=== PATIENT | female | born 1950 | race Caucasian/White ===

== ENCOUNTER 2017-02-15 10:26 | Emergency (ER) | payer MEDICARE ==
[2017-02-15 10:47] VITALS: BP 164/74
--- NOTE | 2017-02-15 11:28 | UC ---
Shoulder Pain HPI - HPI Summary HPI Summary: 1 MONTH OF RIGHT SHOULDER PAIN RADIATING ESSIE ARM. HAS OCCASIONAL NUMBNESS/ TINGLING IN RIGHT HAND FINGERS. HAS FULL RANGE OF MOTION. OCCASIONALLY STATES SHOULDER WILL POP AND CLICK. NO TRAUMA. - History of Current Complaint Chief Complaint: UCUpperExtremity Stated Complaint: SHOULDER PAIN Time Seen by Provider: 02/15/17 11:25 Hx Obtained From: Patient Onset/Duration: Gradual Onset, Lasting Weeks, Still Present Timing: Constant Severity Initially: Moderate Severity Currently: Moderate Pain Intensity: 6 Pain Scale Used: 0-10 Numeric Character: Sharp Aggravating Factor(s): Movement Alleviating Factor(s): Rest Associated Signs And Symptoms: Positive: Numbness/Tingling Related History: Dominant Hand Right - Allergies/Home Medications Allergies/Adverse Reactions: Allergies Allergy/AdvReac Type Severity Reaction Status Date / Time Codeine Allergy Severe Rash Verified 02/03/15 13:09 Erythromycin Allergy Severe Rash Verified 02/03/15 13:09 Latex Allergy Severe Rash Verified 02/03/15 13:09 NSAIDs Allergy Severe Vomiting Verified 02/03/15 13:09 Sertraline [From Zoloft] Allergy Severe Hives Verified 02/03/15 13:09 Bupropion [From Wellbutrin] Allergy Intermediate Rash Verified 02/03/15 13:09 Pregabalin [From Lyrica] Allergy Rash Verified 02/15/17 10:37 PMH/Surg Hx/FS Hx/Imm Hx Endocrine History Of: Denies: Diabetes, Thyroid Disease Cardiovascular History Of: Reports: Hypertension Denies: Cardiac Disorders, Congestive Heart Failure Respiratory History Of: Reports: Asthma Denies: COPD GI/ History Of: Denies: Ulcer - Surgical History Surgical History: Yes Surgery Procedure, Year, and Place: Left knee meniscectomy 1981, cholecystectomy 1980,. bilat cataracts, uterus suspension 1977, joints replaced on thumbs. vaginal warts? precancerous 2014 - Family History Known Family History: Positive: Hypertension - Social History Alcohol Use: Weekly Substance Use Type: Marijuana Substance Use Comment - Amount & Last Used: once in a while Smoking Status (MU): Current Some Day Smoker Review of Systems Constitutional: Negative Skin: Negative Respiratory: Negative Cardiovascular: Negative Gastrointestinal: Negative Musculoskeletal: Arthralgia, Myalgia Neurological: Paresthesia All Other Systems Reviewed And Are Negative: Yes Physical Exam Triage Information Reviewed: Yes Appearance: Well-Appearing, No Pain Distress, Well-Nourished Vital Signs: Initial Vital Signs Temp 100.2 F 02/15/17 10:38 Pulse 76 02/15/17 10:38 Resp 18 02/15/17 10:38 BP 164/74 02/15/17 10:38 Pulse Ox 96 02/15/17 10:38 Vital Signs Reviewed: Yes Eyes: Positive: Conjunctiva Clear ENT: Positive: Hearing grossly normal Neck: Positive: Supple, Nontender, No Lymphadenopathy Respiratory Exam: Normal Cardiovascular Exam: Normal Abdomen Description: Positive: Soft Musculoskeletal: Positive: ROM Intact, No Edema, Other: - TTP RIGHT TRAPEZIOUS MUSCLE. TTP INFERIOR TO CLAVICLE. NEG TINELS, NEG PHALEN Neurological: Positive: Alert Psychological: Positive: Age Appropriate Behavior Diagnostics - Radiology RIGHT SHOULDER XRAY Xray Interpretation: Positive (See Comments) - MILD OSTEOARTHRITIC CHANGE. Radiology Interpretation Completed By: Radiologist Shoulder Course/Dx - Course Course Of Treatment: XRAY SHOWS MILD OSTEOARTHRITIS. PAIN MAY ALSO BE REFERRED FROM [facility]. WILL GIVE CONTACT INFO FOR SPINE CENTER IN [place]. ALSO SUSPECT THORACIC OUTLET SYNDROME. PT DECLINES PHYSICAL THERAPY REFERRAL. WILL PROVIDE ORTHO CONTACT INFO. PT STATES SHE IS UNLIKELY TO CALL. BP IS ELEVATED. PT STATES SHE USED TO TAKE MEDS FOR BP BUT DOESN'T NOW. ADVISED PCP FOLLOW-UP IN 2 WEEKS FOR RE-EVAL. - Differential Dx/Diagnosis Provider Diagnoses: 1. RIGHT SHOULDER OSTEOARTHRITIS. 2. THORACIC OUTLET SYNDROME Discharge - Discharge Plan Condition: Stable Disposition: HOME Patient Education Materials: Osteoarthritis (ED), Thoracic Outlet Syndrome (ED) Referrals: Silke Harding MD [Medical Doctor] - (IF YOU WANT TO DISCUSS TREATMENT FOR YOUR SHOULDER PAIN) Javier Black MD [Primary Care Provider] - 2 Weeks (TO DISCUSS BP) Additional Instructions: MILD OSTEOARTHRITIS ON XRAY TODAY. [facility] [address] [place], [place] [id number]
--- NOTE | 2017-02-15 12:08 | RAD ---
INDICATION: Right shoulder injury. TECHNIQUE: 3 views of the right shoulder were obtained. FINDINGS: The bones are in normal alignment. No fracture is seen. There is mild osteoarthritic change in the glenohumeral joint. There is mild subacromial narrowing secondary to a small spur arising from the acromion process. IMPRESSION: MILD OSTEOARTHRITIC CHANGE.
== END 2017-02-15 12:34 | disposition home or self-care (01) ==
LOC: UCEAST 10:26
DX: M19.011 Primary osteoarthritis, right shoulder (principal); G54.0 Brachial plexus disorders; J45.909 Unspecified asthma, uncomplicated; I10 Essential (primary) hypertension; F17.210 Nicotine dependence, cigarettes, uncomplicated; Z88.5 Allergy status to narcotic agent; Z88.1 Allergy status to other antibiotic agents; Z88.6 Allergy status to analgesic agent; Z88.8 Allergy status to other drugs, medicaments and biological substances; Z91.040 Latex allergy status
CPT/HCPCS: 99211; G0463

== ENCOUNTER 2017-07-14 10:40 | Emergency (ER) | payer MEDICARE ==
[2017-07-14 11:14] VITALS: BP 142/73
--- NOTE | 2017-07-14 12:35 | UC ---
Lower Extremity/Ankle HPI - HPI Summary HPI Summary: This is a 66 yo female with HTN and asthma who presents with c/o L leg pain. It started ~1 week ago and has become progressively worse. She states the pain is in the anterior lower leg. She has a h/o plantar fasciitis for which she occasionally uses a boot for relief which also makes her leg feel somewhat better. She reports some similar pain on the other side, but not as severe. Denies no recent trauma or acute injury. No recent new activity <Perry Antonio - Last Filed: 07/14/17 12:29> <Arabella Trejo - Last Filed: 07/14/17 20:43> - History of Current Complaint Chief Complaint: UCLowerExtremity Stated Complaint: LOWER LEG PAIN - Allergies/Home Medications Allergies/Adverse Reactions: Allergies Allergy/AdvReac Type Severity Reaction Status Date / Time Codeine Allergy Severe Rash Verified 07/14/17 11:09 Erythromycin Allergy Severe Rash Verified 07/14/17 11:09 Latex Allergy Severe Rash Verified 07/14/17 11:09 NSAIDs Allergy Severe Vomiting Verified 07/14/17 11:09 Sertraline [From Zoloft] Allergy Severe Hives Verified 07/14/17 11:09 Bupropion [From Wellbutrin] Allergy Intermediate Rash Verified 07/14/17 11:09 Pregabalin [From Lyrica] Allergy Rash Verified 07/14/17 11:09 PMH/Surg Hx/FS Hx/Imm Hx Cardiovascular History: Hypertension Respiratory History: Asthma - Surgical History Surgical History: Yes Surgery Procedure, Year, and Place: Left knee meniscectomy 1981, cholecystectomy 1980,. bilat cataracts, uterus suspension 1977, joints replaced on thumbs. vaginal warts precancerous 3 2014 - Family History Known Family History: Positive: Hypertension - Social History Alcohol Use: Weekly Substance Use Type: Marijuana Substance Use Comment - Amount & Last Used: once in a while Smoking Status (MU): Current Some Day Smoker <Perry Antonio - Last Filed: 07/14/17 12:29> Review of Systems Constitutional: Negative Skin: Negative Eyes: Negative ENT: Negative Respiratory: Negative Cardiovascular: Negative Gastrointestinal: Negative Genitourinary: Negative Motor: Negative Musculoskeletal: Arthralgia, Myalgia Neurological: Negative Psychological: Negative All Other Systems Reviewed And Are Negative: Yes <Perry Antonio - Last Filed: 07/14/17 12:29> Physical Exam Triage Information Reviewed: Yes Appearance: Well-Appearing Vital Signs: Initial Vital Signs Temp 98.4 F 07/14/17 11:10 Pulse 72 07/14/17 11:10 Resp 18 07/14/17 11:10 BP 142/73 07/14/17 11:10 Pulse Ox 100 07/14/17 11:10 Vital Signs Reviewed: Yes ENT Exam: Normal ENT: Positive: Hearing grossly normal Neck: Positive: Supple, Nontender Respiratory: Positive: Chest non-tender, Lungs clear. Negative: Crackles, Rhonchi, Wheezing Cardiovascular: Positive: RRR, No Murmur Abdomen Description: Positive: Soft Musculoskeletal: Positive: Other: - TTP along anterior tibial region, no focal tenderness, no ecchymosis or edema. Pain exacerbated with resisted plantar flexion. Neurological: Positive: Alert Psychological: Positive: Normal Response To Family Skin Exam: Normal Skin: Negative: rashes <Perry Antonio - Last Filed: 07/14/17 12:29> Vital Signs: Initial Vital Signs Temp 98.4 F 07/14/17 11:10 Pulse 72 07/14/17 11:10 Resp 18 07/14/17 11:10 BP 142/73 07/14/17 11:10 Pulse Ox 100 07/14/17 11:10 <Arabella Trejo - Last Filed: 07/14/17 20:43> Lower Extremity Course/Dx - Course Course Of Treatment: This is a 66 yo female with c/o L lower leg pain which has an insidious onset. TTP along anterior tibial musculature and exacerbated with dorsiflexion. Without acute injury or focal findings, no indication for XR at this time. Pain is likely due to lindsey splints. Demonstrated stretches, recommended icing and occasional immobilization as needed for pain relief. - Differential Dx/Diagnosis Differential Diagnosis/HQI/PQRI: Contusion, Fracture (Closed), Sprain, Strain, Tendonitis Provider Diagnoses: 1. Lindsey splints <Perry Antonio - Last Filed: 07/14/17 12:29> Discharge <Perry Antonio - Last Filed: 07/14/17 12:29> <Arabella Trejo - Last Filed: 07/14/17 20:43> - Discharge Plan Condition: Stable Disposition: HOME Patient Education Materials: Lindsey Splints (ED) Referrals: Javier Black MD [Primary Care Provider] - If Needed Additional Instructions: Activity: As tolerated Instructions: 1. Complete calf stretches as demonstrated 2-3 times daily 2. Apply ice frequently 3. Use topical anti-inflammatory cream for additional pain relief Attestation Statement User Type: Provider - I was available for consult. This patient was seen by the LEONIDES. The patient was not presented to, seen by, or examined by me. -Manpreet <Arabella Trejo - Last Filed: 07/14/17 20:43>
== END 2017-07-14 12:32 | disposition home or self-care (01) ==
LOC: UCEAST 10:40
DX: S86.892A Other injury of other muscle(s) and tendon(s) at lower leg level, left leg, initial encounter (principal); X58.XXXA Exposure to other specified factors, initial encounter; Y93.9 Activity, unspecified; Y99.9 Unspecified external cause status; I10 Essential (primary) hypertension; J45.909 Unspecified asthma, uncomplicated
CPT/HCPCS: 99211; G0463

== ENCOUNTER 2017-11-25 14:31 | Emergency (ER) | payer BC ==
[2017-11-25 14:40] VITALS: BP 160/60
[2017-11-25 16:41] LABS: Urine Appearance Clear; Urine Blood Negative (Negative); Urine Color Straw; Urine Ketones Negative (Negative); Urine Protein Negative (Negative); Urine Specific Gravity 1.009 (1.010-1.030); Urine Urobilinogen Negative (Negative)
--- NOTE | 2017-11-25 16:44 | RAD ---
INDICATION: Right-sided flank pain with radiation to the groin. COMPARISON: There are no prior studies available for comparison. TECHNIQUE: A CT scan of the abdomen and pelvis was performed without intravenous or oral contrast. Contiguous axial sections were obtained from the lung bases through the symphysis pubis. Images were reconstructed in the coronal and sagittal planes. FINDINGS: The lung bases are clear. No pleural effusion is present. The liver and spleen are normal in size without significant focal abnormality on this noncontrast study. The liver is mildly decreased in attenuation consistent with fatty infiltration. The patient is status post cholecystectomy. The pancreas appears to be within normal limits. The adrenal glands and kidneys are normal in size. No renal calculi or hydronephrosis is seen. The aorta is normal in caliber without significant calcific plaque. No significant enlarged retroperitoneal lymph nodes are seen. There is a small hiatal hernia. The wall of the stomach in the hernia appears slightly thickened. The stomach, small and large bowel appear nondistended. The appendix is not visualized. There is mild descending and sigmoid diverticulosis without evidence for diverticulitis. The uterus is anteverted and normal in size. No free intraperitoneal air or fluid is seen. No significant focal osseous abnormality is seen. There is mild to moderate degenerative disc disease throughout the lumbar spine and moderate bilateral osteoarthritic change in the hips. IMPRESSION: 1. NO EVIDENCE FOR ACUTE FINDING OR CAUSE FOR THE PATIENT'S ABDOMINAL PAIN IS SEEN. 2. SMALL HIATAL HERNIA. THE WALL OF THE STOMACH IN THE HERNIA IS SLIGHTLY THICKENED. CONSIDER AN UPPER GI SERIES OR ENDOSCOPY FOR FURTHER EVALUATION. 2. STATUS POST CHOLECYSTECTOMY. 3. MILD HEPATIC STEATOSIS.
[2017-11-25 17:16] LABS: Hematocrit 39 % (35-47); Hemoglobin 12.8 g/dl (12.0-16.0); Mean Corpuscular HGB Conc 33 g/dl (31-36); Mean Corpuscular Hemoglobin 29 pg (27-31); Mean Corpuscular Volume 89 fL (80-97); Mean Platelet Volume 8 um3 (7.4-10.4); Platelet Count 423 10^3/ul (150-450); Red Blood Count 4.44 10^6/ul (4.0-5.4); Red Cell Distribution Width 15 % (10.5-15); White Blood Count 16.4 10^3/ul (3.5-10.8)
[2017-11-25 17:31] LABS: EGFR Non-African American 77.6 (>60)
[2017-11-25] MEDS ORDERED: cefTRIAXone(*) 1 GM in NS 0.9% 50 ML* 50 ML IVPB ONE (18:02)
[2017-11-25] MEDS ORDERED: Cephalexin CAP* 500 MG PO ONE (18:32)
[2017-11-25 18:39] LABS: Monocytes % 2 % (0-13)
--- NOTE | 2017-11-25 18:48 | ED ---
Gabino Leigh Natalie, scribed for Trevor Brian MD on 11/25/17 at 1620 . Lower Extremity - HPI Summary HPI Summary: The pt is a 67 y/o F presenting to the ED c/o right hip and pelvic pain when she woke up this morning. The pain is described as severe. The pain is rated 8 /10. She was not in any pain yesterday. She hasnt had any previous injury to this area before. The pain is aggravated by movement and is alleviated by sitting still. Pt denies difficulty urinating, hematuria, and fever. Reports pain originating from R flank rad to R groin. Denies vag bleeding or discharge. No vom or nausea. - History of Current Complaint Chief Complaint: EDHipPelvisInjury Stated Complaint: RT HIP/PELVIC PAIN Onset of Pain: Hours - started this morning when she woke up Onset/Duration: Hours Severity Initially: Severe Severity Currently: Severe Pain Intensity: 8 Pain Scale Used: 0-10 Numeric Timing: Constant Location: Other - right hip and pelvis Associated Signs And Symptoms: Positive: Other - NEGATIVE: dificulty urinating, hematuria, fever Aggravating Factor(s): Movement Alleviating Factor(s): Rest - Allergies/Home Medications Allergies/Adverse Reactions: Allergies Allergy/AdvReac Type Severity Reaction Status Date / Time Codeine Allergy Severe Rash Verified 11/25/17 14:41 Erythromycin Allergy Severe Rash Verified 11/25/17 14:41 Latex Allergy Severe Rash Verified 11/25/17 14:41 NSAIDs Allergy Severe Vomiting Verified 11/25/17 14:41 Sertraline [From Zoloft] Allergy Severe Hives Verified 11/25/17 14:41 Bupropion [From Wellbutrin] Allergy Intermediate Rash Verified 11/25/17 14:41 Pregabalin [From Lyrica] Allergy Rash Verified 11/25/17 14:41 PMH/Surg Hx/FS Hx/Imm Hx Previously Healthy: No Endocrine/Hematology History: Denies: Hx Diabetes, Hx Thyroid Disease Cardiovascular History: Reports: Hx Hypertension Denies: Hx Congestive Heart Failure Respiratory History: Reports: Hx Asthma Denies: Hx Chronic Obstructive Pulmonary Disease (COPD) GI History: Denies: Hx Ulcer Musculoskeletal History: Denies: Hx Osteoporosis - Surgical History Surgery Procedure, Year, and Place: Left knee meniscectomy 1981, cholecystectomy 1980,. bilat cataracts, uterus suspension 1977, joints replaced on thumbs. vaginal warts precancerous 2014 Infectious Disease History: No Infectious Disease History: Denies: Hx Clostridium Difficile, Hx Hepatitis, Hx Human Immunodeficiency Virus (HIV), Hx of Known/Suspected MRSA, Hx Shingles, Hx Tuberculosis, Hx Known/ Suspected VRE, Hx Known/Suspected VRSA, History Other Infectious Disease, Traveled Outside the [place] in Last 30 Days - Family History Known Family History: Positive: Hypertension Negative: Diabetes - Social History Alcohol Use: Weekly Substance Use Type: Reports: Marijuana Substance Use Comment - Amount & Last Used: once in a while Smoking Status (MU): Current Some Day Smoker Review of Systems Negative: Fever ENT: Negative Cardiovascular: Negative Negative: hematuria, other - difficulty urinating Positive: Other - right hip and pelvic pain Skin: Negative Neurological: Negative All Other Systems Reviewed And Are Negative: Yes Physical Exam - Summary Physical Exam Summary: Appearance: Well-appearing, Well-nourished Skin: Warm, dry Eyes: Normal, Extraocular movements intact, PERRL HENT: Normal, Normal cephalic, atraumatic, Moist mucous membranes Neck: Supple, nontender Respiratory: Clear to auscultation Cardiovascular: Normal, S1 and S2, No murmurs, Normal bilateral pulses Abdomen: Soft, nontender, no distension Bowel: Present Musculoskeletal: Strength/ROM Intact, Positive CVA tenderness to right Neurological: Normal, A&Ox3 Psychiatric: Normal Triage Information Reviewed: Yes Vital Signs On Initial Exam: Initial Vitals Temp Pulse Resp BP Pulse Ox 98.1 F 70 16 160/60 99 11/25/17 14:36 11/25/17 14:36 11/25/17 14:36 11/25/17 14:36 11/25/17 14:36 Vital Signs Reviewed: Yes Diagnostics - Vital Signs Vital Signs Temp Pulse Resp BP Pulse Ox 11/25/17 14:36 98.1 F 70 16 160/60 99 - Laboratory Lab Results: Lab Results 11/25/17 11/25/17 11/25/17 Range/Units 16:20 17:05 17:05 WBC 16.4 H (3.5-10.8) 10^3/ul RBC 4.44 (4.0-5.4) 10^6/ul Hgb 12.8 (12.0-16.0) g/dl Hct 39 (35-47) % MCV 89 (80-97) fL MCH 29 (27-31) pg MCHC 33 (31-36) g/dl RDW 15 (10.5-15) % Plt Count 423 (150-450) 10^3/ul MPV 8 (7.4-10.4) um3 Neut % (Auto) Pending Lymph % (Auto) Pending Mcpherson % (Auto) Pending Eos % (Auto) Pending Baso % (Auto) Pending Absolute Neuts (auto) Pending Absolute Lymphs (auto) Pending Absolute Monos (auto) Pending Absolute Eos (auto) Pending Absolute Basos (auto) Pending Absolute Nucleated RBC Pending Nucleated RBC % Pending Sodium 139 (133-145) mmol/L Potassium 4.0 (3.5-5.0) mmol/L Chloride 105 (101-111) mmol/L Carbon Dioxide 27 (22-32) mmol/L Anion Gap 7 (2-11) mmol/L BUN 17 (6-24) mg/dL Creatinine 0.75 (0.51-0.95) mg/dL Est GFR ( Amer) 99.7 (>60) Est GFR (Non-Af Amer) 77.6 (>60) BUN/Creatinine Ratio 22.7 H (8-20) Glucose 100 (70-100) mg/dL Calcium 9.4 (8.6-10.3) mg/dL Total Bilirubin 0.40 (0.2-1.0) mg/dL AST 17 (13-39) U/L ALT 13 (7-52) U/L Alkaline Phosphatase 71 (34-104) U/L Total Protein 6.7 (6.4-8.9) g/dL Albumin 4.1 (3.2-5.2) g/dL Globulin 2.6 (2-4) g/dL Albumin/Globulin Ratio 1.6 (1-3) Lipase 12 (11.0-82.0) U/L Urine Color Straw Urine Appearance Clear Urine pH 7.0 (5-9) Ur Specific Paden 1.009 L (1.010-1.030) Urine Protein Negative (Negative) Urine Ketones Negative (Negative) Urine Blood Negative (Negative) Urine Nitrate Negative (Negative) Urine Bilirubin Negative (Negative) Urine Urobilinogen Negative (Negative) Ur Leukocyte Esterase 3+ H (Negative) Urine WBC (Auto) 3+(>20/hpf) H (Absent) Urine RBC (Auto) Trace(0-2/hpf) (Absent) Ur Squamous Epith Cells Present H (Absent) Urine Bacteria Absent (Absent) Urine Glucose Negative (Negative) Result Diagrams: 11/25/17 17:05 11/25/17 17:05 Lab Statement: Any lab studies that have been ordered have been reviewed, and results considered in the medical decision making process. - CT CT Abd/Pel CT Interpretation: Positive (See Comments) - 1. No evidence for acute finding or cause for the patient's abdominal pain is seen. 2. Small hiatal hernia. The wall of the stomach in the hernia is slightly thickened. Consider an upper GI series or endoscopy for further evaluation. 2. Status post cholecystectomy. 3. Mild hepatic steatosis. ED physician has reviewed this report. CT Interpretation Completed By: Radiologist Lower Extremity Course/Dx - Course Assessment/Plan: no acute abnormalities seen on CT, pt feels better after course here in ED,labs consistent with UTI with likely resultant pyelonephritis. Pt instructed to continue abx at home, agrees to and understnads dc instructions. in no acute distress, tolerating PO normally. - Diagnoses Provider Diagnoses: Pyelonephritis Discharge - Discharge Plan Condition: Improved Disposition: HOME Prescriptions: Cephalexin CAP* [Keflex CAP*] 500 mg PO QID #40 cap Patient Education Materials: Flank Pain (ED) Referrals: Javier Black MD [Primary Care Provider] - Additional Instructions: PLEASE TAKE MEDICATIONS DIRECTED UNTIL COMPLETION OF ENTIRE COURSE PLEASE RETURN IMMEDIATELY TO THE ER IF YOU HAVE ANY WORSENING OR CONCERNING SYMPTOMS PLEASE MAKE AN APPOINTMENT TO BE SEEN BY YOUR PRIMARY CARE DOCTOR WITHIN 1 WEEK The documentation as recorded by the Gabino gutierrez Natalie accurately reflects the service I personally performed and the decisions made by , Trevor Brian MD.
== END 2017-11-25 19:00 | disposition home or self-care (01) ==
LOC: ED 14:31
DX: N12 Tubulo-interstitial nephritis, not specified as acute or chronic (principal); R10.2 Pelvic and perineal pain; M25.551 Pain in right hip; Z72.0 Tobacco use
CPT/HCPCS: 36415; 74176; 80053; 81003; 81015; 83690; 85025; 87086; 99282; A9270-GY

== ENCOUNTER 2018-03-16 13:37 | Emergency (ER) | payer BC ==
[2018-03-16 14:05] VITALS: BP 135/81
--- NOTE | 2018-03-16 14:20 | ED ---
Throat Pain/Nasal Congestion - HPI Summary HPI Summary: 67-year-old female presents with left ear pain for the past day. She admits to decreasing hearing but she has a decrease hearing at baseline. She denies any itchiness. She states pain radiates to her left-sided jaw. She denies any chest pain or shortness of breath. she denies any toothache. She denies any sinus congestion. She denies any fevers. She also states that this when she woke up with lower back pain. She denies any injury. She does have a history of occasionally back pain. She denies any loss of bowel or bladder saddle anesthesia. She denies any weakness. She denies any numbness or tingling into her legs. She states that the pain is better when she empties her bladder. She denies any dysuria or hematuria. She denies any history of kidney stones. She does not like to take pills for pain. - History of Current Complaint Chief Complaint: UCBackPain Time Seen by Provider: 03/16/18 14:10 - Allergies/Home Medications Allergies/Adverse Reactions: Allergies Allergy/AdvReac Type Severity Reaction Status Date / Time MS Codeine [Codeine] Allergy Severe Rash Verified 03/16/18 13:48 MS Erythromycin Allergy Severe Rash Verified 03/16/18 13:48 [Erythromycin] MS Latex [Latex] Allergy Severe Rash Verified 03/16/18 13:48 MS NSAIDs [NSAIDs] Allergy Severe Vomiting Verified 03/16/18 13:48 MS Sertraline [From Zoloft] Allergy Severe Hives Verified 03/16/18 13:48 MS Bupropion Allergy Intermediate Rash Verified 03/16/18 13:48 [From Wellbutrin] MS Pregabalin [From Lyrica] Allergy Rash Verified 03/16/18 13:48 Home Medications: Home Medications Cephalexin CAP* [Keflex CAP*] 500 mg PO ONCE 03/16/18 [History] PMH/Surg Hx/FS Hx/Imm Hx Endocrine/Hematology History: Denies: Hx Diabetes, Hx Thyroid Disease Cardiovascular History: Reports: Hx Hypertension Denies: Hx Congestive Heart Failure Respiratory History: Reports: Hx Asthma Denies: Hx Chronic Obstructive Pulmonary Disease (COPD) GI History: Denies: Hx Ulcer Musculoskeletal History: Denies: Hx Osteoporosis - Surgical History Surgery Procedure, Year, and Place: Left knee meniscectomy 1981, cholecystectomy 1980,. bilat cataracts, uterus suspension 1977, joints replaced on thumbs. vaginal warts precancerous 2014 Infectious Disease History: No Infectious Disease History: Denies: Hx Clostridium Difficile, Hx Hepatitis, Hx Human Immunodeficiency Virus (HIV), Hx of Known/Suspected MRSA, Hx Shingles, Hx Tuberculosis, Hx Known/ Suspected VRE, Hx Known/Suspected VRSA, History Other Infectious Disease, Traveled Outside the [place] in Last 30 Days - Family History Known Family History: Positive: Hypertension Negative: Diabetes - Social History Alcohol Use: Weekly Substance Use Type: Reports: None Substance Use Comment - Amount & Last Used: once in a while Smoking Status (MU): Current Some Day Smoker Review of Systems Negative: Fever Positive: Ear Ache. Negative: Dental Pain Negative: Chest Pain Negative: Shortness Of Breath Positive: Myalgia - back pain All Other Systems Reviewed And Are Negative: Yes Physical Exam Triage Information Reviewed: Yes Vital Signs On Initial Exam: Initial Vitals Temp Pulse Resp BP Pulse Ox 98.6 F 85 16 135/81 97 03/16/18 13:50 03/16/18 13:50 03/16/18 13:50 03/16/18 13:50 03/16/18 13:50 Vital Signs Reviewed: Yes Appearance: Positive: Well-Appearing Skin: Positive: Warm, Dry Head/Face: Positive: Normal Head/Face Inspection Eyes: Positive: Normal, EOMI, ASIM, Conjunctiva Clear ENT: Positive: Pharynx normal, TMs normal, Other - left canal edematous and erythematous Respiratory/Lung Sounds: Positive: Clear to Auscultation, Breath Sounds Present Cardiovascular: Positive: Normal, RRR Abdomen Description: Positive: Nontender, Soft. Negative: CVA Tenderness (R), CVA Tenderness (L) Bowel Sounds: Positive: Present Musculoskeletal: Positive: Strength/ROM Intact - back, Other - tenderness lower back left>right, neg SLR, good pulses, sensation grossly intact Neurological: Positive: Reflexes Intact - patella Psychiatric: Positive: Normal Diagnostics - Vital Signs Vital Signs Temp Pulse Resp BP Pulse Ox 03/16/18 13:50 98.6 F 85 16 135/81 97 - Laboratory Lab Results: Lab Results 03/16/18 Range/Units 14:07 POC Urine Color Yellow POC Urine Clarity Clear POC Urine pH 5.5 (5-9) POC Ur Specif [place] <= 1.005 L (1.010-1.030) POC Urine Protein Negative (Negative) POC Ur Glucose (UA) Negative (Negative) POC Urine Ketones Negative (Negative) POC Urine Blood Negative (Negative) POC Urine Nitrite Negative (Negative) POC Urine Bilirubin Negative (Negative) POC Urine Urobilinogen 0.2 (Negative) POC U Leukocyte Esteras Trace A (Negative) Lab Statement: Any lab studies that have been ordered have been reviewed, and results considered in the medical decision making process. EENT Course/Dx - Course Course Of Treatment: 67-year-old female presents with left ear pain for the past day. She admits to decreasing hearing but she has a decrease hearing at baseline. She denies any itchiness. She states pain radiates to her left- sided jaw. She denies any chest pain or shortness of breath. she denies any toothache. She denies any sinus congestion. She denies any fevers. She also states that this when she woke up with lower back pain. She denies any injury. She does have a history of occasionally back pain. She denies any loss of bowel or bladder saddle anesthesia. She denies any weakness. She denies any numbness or tingling into her legs. She states that the pain is better when she empties her bladder. She denies any dysuria or hematuria. She denies any history of kidney stones. She does not like to take pills for pain. on exam left ear canal edematous and erythematous. Tympanic membrane normal. We'll treat with Ciprodex. Back exam tenderness lower back left greater than right. Neurovascularly intact. No CVA tenderness. Urine has trace of esterase will wait for final culture to see if needs antibiotic. Patient declined any medication for back pain. Will have follow-up with primary no improvement and about blood pressure is in pre-htn range and has dx of HTN. Patient understands agrees plan. - Differential Diagnoses Differential Diagnoses: Otitis Externa, Otitis Media, URI/Bronchitis, Other - uti - Diagnoses Provider Diagnoses: Left otitis externa, Back pain Discharge - Sign-Out/Discharge Documenting (check all that apply): Discharge/Admit/Transfer - Discharge Plan Condition: Good Disposition: HOME Prescriptions: Ciproflox/Dexameth OTIC.SUSP* [Ciprodex OTIC.SUSP*] 4 drop .SEE ORDER BID #1 [id number] Patient Education Materials: Otitis Externa (ED), Back Pain (ED) Referrals: Javier Black MD [Primary Care Provider] - Additional Instructions: Use 4 drops twice a day for 7 days Take Tylenol every 6 hours for pain Use ice/heat for bcak pain Follow up with primary in a week to make sure resolving Return to ED if develop any new or worsening symptoms - Billing Disposition and Condition Condition: GOOD Disposition: HOME
== END 2018-03-16 14:50 | disposition home or self-care (01) ==
LOC: UCEAST 13:37
DX: H60.92 Unspecified otitis externa, left ear (principal); M54.9 Dorsalgia, unspecified; I10 Essential (primary) hypertension; J45.909 Unspecified asthma, uncomplicated; Z88.5 Allergy status to narcotic agent; Z88.8 Allergy status to other drugs, medicaments and biological substances; Z88.6 Allergy status to analgesic agent; Z88.1 Allergy status to other antibiotic agents; Z91.040 Latex allergy status; Z72.0 Tobacco use
CPT/HCPCS: 81003; 87086; 99212; G0463

== ENCOUNTER 2019-03-17 10:31 | Emergency (ER) | payer MEDICARE ==
[2019-03-17 10:50] VITALS: BP 162/82
--- NOTE | 2019-03-17 11:19 | UC ---
Respiratory Complaint HPI - HPI Summary HPI Summary: Patient is a 68 year old female, who present today to the urgent care with sore throat since morning today. She had a fever last night, did not measure it. She was exposed to strep, babysitting her 3 grandkids over tested positive for strep throat. Denies any cough but has some dysphagia Denies any chest pain or shortness of breath. Denies any abdominal pain , nausea or vomiting , diarrhea or constipation. Off note she also reports that she feels unsafe because of the dangerous neighborhood but not because of something inside the house and also that she sometimes feels like hurting someone but currently does not have a plan and does not have any feeling about doing that and she feels comfortable at this time. - History of Current Complaint Chief Complaint: UCRespiratory Stated Complaint: SORE THROAT COUGH Time Seen by Provider: 03/17/19 10:54 Hx Obtained From: Patient Pain Intensity: 4 - Allergies/Home Medications Allergies/Adverse Reactions: Allergies Allergy/AdvReac Type Severity Reaction Status Date / Time bupropion Allergy Unknown Verified 03/17/19 10:48 Reaction Details codeine Allergy Unknown Verified 03/17/19 10:48 Reaction Details egg Allergy Rash Verified 03/17/19 10:48 erythromycin base Allergy Unknown Verified 03/17/19 10:48 Reaction Details latex Allergy Rash Verified 03/17/19 10:48 NSAIDS (Non-Steroidal Allergy Unknown Verified 03/17/19 10:48 Anti-Inflamma Reaction Details pregabalin Allergy Rash Verified 03/17/19 10:48 sertraline Allergy Unknown Verified 03/17/19 10:48 Reaction Details Home Medications: Home Medications Acetaminophen [Mapap] 1,500 mg PO ONCE PRN 03/17/19 [History Confirmed 03/17/19] PMH/Surg Hx/FS Hx/Imm Hx - Additional Past Medical History Additional PMH: Hypertension GERD Asthma Anxiety Previously Healthy: Yes - Surgical History Surgical History: Yes Surgery Procedure, Year, and Place: Left knee meniscectomy 1981, cholecystectomy 1980,. bilat cataracts, uterus suspension 1977, joints replaced on thumbs. vaginal warts precancerous 2014 - Family History Known Family History: Positive: Hypertension Negative: Diabetes - Social History Alcohol Use: Occasionally Substance Use Type: None Substance Use Comment - Amount & Last Used: once in a while Smoking Status (MU): Former Smoker Review of Systems All Other Systems Reviewed And Are Negative: Yes Constitutional: Positive: Fever, Chills Skin: Positive: Negative Eyes: Positive: Negative ENT: Positive: Sore Throat Respiratory: Positive: Negative. Negative: Cough Cardiovascular: Positive: Negative Gastrointestinal: Positive: Negative Genitourinary: Positive: Negative Motor: Positive: Negative Neurovascular: Positive: Negative Musculoskeletal: Positive: Negative Neurological: Positive: Negative Psychological: Positive: Negative Is Patient Immunocompromised?: No Physical Exam - Summary Physical Exam Summary: Physical Exam: Const: Appears well. No signs of apparent distress present. Alert and oriented x 3. Musculo: Walks with a normal gait. Head/Face: Atraumatic, normocephalic on inspection. Eyes: EOMI and PERRLA in both eyes. Conjunctivae clear. No discharge noted ENT: Hearing normal, TM normal appearing bilaterally, non bulging , non erythematous . No tenderness on palpation / manipulation of Tragus. No mastoid tenderness. No tenderness to palpation on maxillary and frontal sinus. Mild pharyngeal erythema and small amount of exudate noted on the right tonsil. Uvula is midline. Mild tender anterior cervical or submandibular lymphadenopathy noted bilaterally Respiratory: Respirations are unlabored. Lungs clear to auscultation bilaterally, no wheezing , rhonchi or rales noted . CVS: Regular rate and Rhythm, S1S2 normal , no murmurs identified. Extremities: Peripheral circulation is grossly normal. Pulses 2+ Abdomen : Soft non tender , nondistended , Bowel sounds present . No guarding , rebound tenderness or rigidity noted. Skin: No lesions or rash located on the upper extremities or on the lower extremities. Neuro: Cranial nerves II to XII intact, motor and sensory intact. DTR Intact bilaterally. Mood is normal. Affect is normal. Triage Information Reviewed: Yes Vital Signs: Initial Vital Signs Temp 99.1 F 03/17/19 10:43 Pulse 77 03/17/19 10:43 Resp 18 03/17/19 10:43 BP 162/82 03/17/19 10:43 Pulse Ox 97 03/17/19 10:43 Vital Signs Reviewed: Yes Respiratory Course/Dx - Course Course Of Treatment: During the visit today, we obtained a rapid strep test is negative. Rapid flu test was negative. Likely a viral syndrome We discussed the findings and further plan Patient expressed understanding . - Differential Dx/Diagnosis Provider Diagnosis: Pharyngitis, Acute viral syndrome Discharge - Sign-Out/Discharge Documenting (check all that apply): Patient Departure All imaging exams completed and their final reports reviewed: No Studies - Discharge Plan Condition: Stable Disposition: HOME Patient Education Materials: Viral Syndrome (ED) Referrals: Javier Black MD [Primary Care Provider] - 3 Days Additional Instructions: Salt water gargles and throat lozenges as needed Keep yourself hydrated Ibuprofen/Tylenol as needed for fever Follow up with your primary care doctor within 3-4 days Patients blood pressure slightly high in Urgent care today , plan follow up with PCP for better control within a month Return to Urgent care / ER if symptoms get worse. - Billing Disposition and Condition Condition: STABLE Disposition: Home
[2019-03-17 11:55] LABS: Influenza A Molecular NEGATIVE (Negative); Influenza B Molecular NEGATIVE (Negative)
== END 2019-03-17 12:08 | disposition home or self-care (01) ==
LOC: UCEAST 10:31
DX: J02.9 Acute pharyngitis, unspecified (principal); B34.9 Viral infection, unspecified; I10 Essential (primary) hypertension; K21.9 Gastro-esophageal reflux disease without esophagitis; J45.909 Unspecified asthma, uncomplicated; F41.9 Anxiety disorder, unspecified; Z96.693 Finger-joint replacement, bilateral; Z88.5 Allergy status to narcotic agent; Z88.8 Allergy status to other drugs, medicaments and biological substances; Z88.6 Allergy status to analgesic agent; Z88.1 Allergy status to other antibiotic agents; Z91.012 Allergy to eggs; Z91.040 Latex allergy status; Z87.891 Personal history of nicotine dependence
CPT/HCPCS: 87651; 99211; G0463

== ENCOUNTER 2019-06-15 21:00 | Emergency (ER) | payer MEDICARE ==
--- NOTE | 2019-06-15 21:17 | ED ---
HPI Chest Pain - HPI Summary HPI Summary: A 68 y/o female brought in by [facility] ambulance presents to [facility] with a chief complaint of Chest pain today. She also notes that she has had muscle and bone pain for months and notes that today she has worsened neck pain that radiates down to her left shoulder. She says that after running errands today at around 17:00 her pain radiated to her chest and has been constant ever since, although now she notes that her pain is "pretty much gone". She reports nausea and feeling nervous in the ED, but denies any SOB and diaphoresis. She takes Nexium daily. She reports a Hx of asthma. She is a former smoker, quitting "a long time ago". She denies a Hx of DM or cardiac disease. She notes a FHx of cardiac disease on both sides of her family. - History of Current Complaint Time Seen by Provider: 06/15/19 21:10 Hx Obtained From: Patient, EMS Onset/Duration: Started Hours Ago, Still Present Time of Onset: 17:00 Timing: Constant, Lasting Hours Initial Severity: Moderate Current Severity: Moderate Pain Intensity: 6 Pain Scale Used: 0-10 Numeric Chest Pain Location: Diffuse Chest Pain Radiates: Yes Chest Pain Radiates To:: Arm, Neck Character: Other: - unable to describe Aggravating Factor(s): Nothing Alleviating Factor(s): Nothing Associated Signs and Symptoms: Positive: Nausea, Other: - positive: nervous, left arm and neck pain. Negative: Shortness of Breath - Allergy/Home Medications Allergies/Adverse Reactions: Allergies Allergy/AdvReac Type Severity Reaction Status Date / Time bupropion Allergy Unknown Verified 03/17/19 10:48 Reaction Details codeine Allergy Unknown Verified 03/17/19 10:48 Reaction Details egg Allergy Rash Verified 03/17/19 10:48 erythromycin base Allergy Unknown Verified 03/17/19 10:48 Reaction Details latex Allergy Rash Verified 03/17/19 10:48 NSAIDS (Non-Steroidal Allergy Unknown Verified 03/17/19 10:48 Anti-Inflamma Reaction Details pregabalin Allergy Rash Verified 03/17/19 10:48 sertraline Allergy Unknown Verified 03/17/19 10:48 Reaction Details PMH/Surg Hx/FS Hx/Imm Hx Endocrine/Hematology History: Denies: Hx Diabetes, Hx Thyroid Disease Cardiovascular History: Reports: Hx Hypertension Denies: Hx Congestive Heart Failure Respiratory History: Reports: Hx Asthma Denies: Hx Chronic Obstructive Pulmonary Disease (COPD) GI History: Denies: Hx Ulcer Musculoskeletal History: Denies: Hx Osteoporosis Neurological History: Reports: Other Neuro Impairments/Disorders - positional vertigo - Surgical History Surgery Procedure, Year, and Place: Left knee meniscectomy 1981, cholecystectomy 1980,. bilat cataracts, uterus suspension 1977, joints replaced on thumbs. vaginal warts precancerous 2014 Infectious Disease History: Denies: Hx Clostridium Difficile, Hx Hepatitis, Hx Human Immunodeficiency Virus (HIV), Hx of Known/Suspected MRSA, Hx Shingles, Hx Tuberculosis, Hx Known/ Suspected VRE, Hx Known/Suspected VRSA, History Other Infectious Disease - Family History Known Family History: Positive: Hypertension Negative: Diabetes - Social History Alcohol Use: Occasionally Hx Substance Use: No Substance Use Type: Reports: None Substance Use Comment - Amount & Last Used: once in a while Hx Tobacco Use: Yes Smoking Status (MU): Former Smoker Review of Systems Negative: Fever, Skin Diaphoresis Positive: Chest Pain Negative: Shortness Of Breath Positive: Nausea Positive: Other - positive: pain in neck radiating to left arm and chest Positive: Anxious All Other Systems Reviewed And Are Negative: Yes Physical Exam - Summary Physical Exam Summary: Appearance: Well-appearing, Well-nourished, lying in bed comfortably Skin: Warm, dry, no obvious rash Eyes: sclera anicteric, no conjunctival pallor ENT: mucous membranes moist, pharynx appears normal Neck: Supple, nontender Respiratory: Clear to auscultation, no signs of respiratory distress Cardiovascular: Normal S1, S2. No murmurs. Normal distal pulses in tibial and radial bilaterally. Abdomen: Soft, nontender, normal active bowel sounds present Musculoskeletal: Normal, Strength/ROM Intact Neurological: A&Ox3, awake and alert, mentation is normal, speech is fluent and appropriate Psychiatric: affect is normal, does not appear anxious or depressed Triage Information Reviewed: Yes Vital Signs Reviewed: Yes Diagnostics - Laboratory Result Diagrams: 06/15/19 21:39 06/15/19 21:39 Lab Statement: Any lab studies that have been ordered have been reviewed, and results considered in the medical decision making process. - EKG 21:05 Cardiac Rate: NL - 97 bpm EKG Rhythm: Sinus Rhythm Summary of EKG Findings: NSR at 97 BPM, P waves, QRS complex, and T waves are within normal limits, T waves and intervals are normal, no ischemic changes. This is a normal EKG. Chest Pain Course/Dx - Course Course Of Treatment: A 68 y/o female brought in by [facility] ambulance presents to [facility] with a chief complaint of Chest pain today. The physical exam was unremarkable. EKG at 21:05 showed NSR at 97 BPM, P waves, QRS complex, and T waves are within normal limits, T waves and intervals are normal, no ischemic changes. This is a normal EKG. Blood work and chemistries obtained and are WNL. The patient will be discharged and follow up with her PCP. The patient is agreeable with this plan. - Diagnoses Provider Diagnoses: Chest pain Discharge - Sign-Out/Discharge Documenting (check all that apply): Patient Departure - DC Patient Received Moderate/Deep Sedation with Procedure: No - Discharge Plan Condition: Good Disposition: HOME Patient Education Materials: Chest Pain (ED) Referrals: Javier Black MD [Primary Care Provider] - 3 Days - Billing Disposition and Condition Condition: GOOD Disposition: Home - Attestation Statements Document Initiated by Timibe: Yes Documenting Scribe: Norberto Prince Provider For Whom Timibkassidy is Documenting (Include Credential): Guillaume Gonsalez MD Scribe Attestation: Norberto Leigh, scribed for Guillaume Gonsalez MD on 06/16/19 at 0516. Scribe Documentation Reviewed: Yes Provider Attestation: The documentation as recorded by the Norberto gutierrez accurately reflects the service I personally performed and the decisions made by me, Guillaume Gonsalez MD Status of Scribe Document: Viewed
[2019-06-15 21:55] LABS: Hematocrit 38 % (35-47); Hemoglobin 12.5 g/dL (12.0-16.0); Mean Corpuscular HGB Conc 33 g/dL (31-36); Mean Corpuscular Hemoglobin 28 pg (27-31); Mean Corpuscular Volume 85 fL (80-97); Mean Platelet Volume 8.2 fL (7.4-10.4); Platelet Count 347 10^3/uL (150-450); Red Cell Distribution Width 17 % (10-15); White Blood Count 14.4 10^3/uL (3.5-10.8)
[2019-06-15 22:03] LABS: INR 1.1 (0.82-1.09)
[2019-06-15 22:18] LABS: Albumin 4.3 g/dL (3.2-5.2); Albumin/Globulin Ratio 1.6 (1-3); BUN/Creatinine Ratio 19.5 (8-20); Calcium 9.6 mg/dL (8.6-10.3); EGFR African American 84.4 (>60); EGFR Non-African American 69.7 (>60); Globulin 2.7 g/dL (2-4); Total Bilirubin 0.4 mg/dL (0.2-1.0)
[2019-06-15 23:04] LABS: ABS Basophils 0.1 10^3/ul (0-0.2); ABS Eosinophils 0.1 10^3/ul (0-0.6); ABS Lymphocytes 1.1 10^3/ul (1.0-4.8); ABS Monocytes 0.5 10^3/ul (0-0.8); ABS Neutrophils 12.7 10^3/ul (1.5-7.7); Eosinophil % 0.4 %; Lymphocyte % 7.5 %; Nucleated Red Blood Cells % 0.2
[2019-06-16 01:34] VITALS: BP 148/79
== END 2019-06-16 01:33 | disposition home or self-care (01) ==
LOC: ED 21:00
DX: R07.9 Chest pain, unspecified (principal); I10 Essential (primary) hypertension; F41.9 Anxiety disorder, unspecified; Z87.891 Personal history of nicotine dependence; M54.2 Cervicalgia; M79.602 Pain in left arm
CPT/HCPCS: 36415; 80053; 84484; 85025; 85610; 93005; 99282

== ENCOUNTER 2020-01-05 10:57 | Emergency (ER) | payer MEDICARE ==
[2020-01-05 11:47] LABS: Hematocrit 37 % (35-47); Hemoglobin 12.2 g/dL (12.0-16.0); Mean Corpuscular HGB Conc 33 g/dL (31-36); Mean Corpuscular Hemoglobin 29 pg (27-31); Mean Corpuscular Volume 89 fL (80-97); Mean Platelet Volume 8.8 fL (7.4-10.4); Platelet Count 316 10^3/uL (150-450); Red Blood Count 4.17 10^6 /uL (3.70-4.87); Red Cell Distribution Width 16 % (10-15); White Blood Count 12.7 10^3/uL (3.5-10.8)
[2020-01-05 11:59] LABS: INR 1.22 (0.82-1.09)
[2020-01-05 12:01] LABS: Albumin 4.3 g/dL (3.2-5.2); Calcium 9.2 mg/dL (8.6-10.3); Total Bilirubin 0.5 mg/dL (0.2-1.0)
[2020-01-05 12:07] LABS: Albumin/Globulin Ratio 1.6 (1-3); BUN/Creatinine Ratio 19.7 (8-20); EGFR African American 91.8 (>60); EGFR Non-African American 75.9 (>60); Globulin 2.7 g/dL (2-4)
--- NOTE | 2020-01-05 12:12 | ED ---
Abdominal Pain/Female - HPI Summary HPI Summary: 69 y/o male presented to [facility] after episode of BRBPR this morning. She is also experiencing mild generalized abd pain, vomiting, and nausea since yesterday but no fever. She notes that she has not had bowel movements with blood before, only mucous. Pt notes hx of IBS and fhx colon cx in her sister. She has not had a colonoscopy recently. - History of Current Complaint Chief Complaint: EDGIBleed Stated Complaint: RECTAL BLEEDING PER PT Time Seen by Provider: 01/05/20 11:30 Hx Obtained From: Patient Onset/Duration: Lasting Days, Still Present Timing: Days Severity Currently: Severe Pain Intensity: 8 Pain Scale Used: 0-10 Numeric Associated Signs and Symptoms: Positive: Blood in Stool, Nausea, Vomiting, Other : - abdominal pain. Negative: Fever Allergies/Adverse Reactions: Allergies Allergy/AdvReac Type Severity Reaction Status Date / Time bupropion Allergy Unknown Verified 03/17/19 10:48 Reaction Details codeine Allergy Unknown Verified 03/17/19 10:48 Reaction Details egg Allergy Rash Verified 03/17/19 10:48 erythromycin base Allergy Unknown Verified 03/17/19 10:48 Reaction Details latex Allergy Rash Verified 03/17/19 10:48 NSAIDS (Non-Steroidal Allergy Unknown Verified 03/17/19 10:48 Anti-Inflamma Reaction Details pregabalin Allergy Rash Verified 03/17/19 10:48 sertraline Allergy Unknown Verified 03/17/19 10:48 Reaction Details PMH/Surg Hx/FS Hx/Imm Hx Endocrine/Hematology History: Denies: Hx Diabetes, Hx Thyroid Disease Cardiovascular History: Reports: Hx Hypertension Denies: Hx Congestive Heart Failure Respiratory History: Reports: Hx Asthma Denies: Hx Chronic Obstructive Pulmonary Disease (COPD) GI History: Denies: Hx Ulcer Musculoskeletal History: Denies: Hx Osteoporosis Neurological History: Reports: Other Neuro Impairments/Disorders - positional vertigo - Surgical History Surgery Procedure, Year, and Place: Left knee meniscectomy 1981, cholecystectomy 1980,. bilat cataracts, uterus suspension 1977, joints replaced on thumbs. vaginal warts precancerous 2014 Infectious Disease History: No Infectious Disease History: Denies: Hx Clostridium Difficile, Hx Hepatitis, Hx Human Immunodeficiency Virus (HIV), Hx of Known/Suspected MRSA, Hx Shingles, Hx Tuberculosis, Hx Known/ Suspected VRE, Hx Known/Suspected VRSA, History Other Infectious Disease, Traveled Outside the [place] in Last 30 Days - Family History Known Family History: Positive: Hypertension Negative: Diabetes - Social History Alcohol Use: Occasionally Hx Substance Use: No Substance Use Type: Reports: None Substance Use Comment - Amount & Last Used: once in a while Hx Tobacco Use: Yes Smoking Status (MU): Former Smoker Review of Systems Positive: Abdominal Pain, Vomiting, Diarrhea Positive: other - hematochezia All Other Systems Reviewed And Are Negative: Yes Physical Exam - Summary Physical Exam Summary: Constitutional: Well-developed, Well-nourished, Alert. (-) Distressed Skin: Warm, Dry HENT: Normocephalic; Atraumatic Eyes: Conjunctiva normal Neck: Musculoskeletal ROM normal neck. (-) JVD, (-) Stridor, (-) Nuchal rigidity Cardio: Rhythm regular, rate normal, Heart sounds normal; Intact distal pulses; Radial pulses are 2+ and symmetric. (-) Murmur Pulmonary/Chest wall: Effort normal. (-) Respiratory distress, (-) Wheezes, (-) Rales Abd: Soft, (+) mild generalized tenderness, (-) Distension, (-) Guarding, (-) Rebound Musculoskeletal: (-) Edema Neuro: Alert, Oriented x3 Psych: Mood and affect Normal Rectal: no apparent blood no external hemorroids, + condyloma, chaperoned by So in room Triage Information Reviewed: Yes Vital Signs On Initial Exam: Initial Vitals Temp Pulse Resp BP Pulse Ox 99.1 F 83 19 164/80 99 01/05/20 10:58 01/05/20 10:58 01/05/20 10:58 01/05/20 10:58 01/05/20 10:58 Vital Signs Reviewed: Yes Procedures - Sedation Patient Received Moderate/Deep Sedation with Procedure: No Diagnostics - Vital Signs Vital Signs Temp Pulse Resp BP Pulse Ox 01/05/20 10:58 99.1 F 83 19 164/80 99 - Laboratory Lab Results: Lab Results 01/05/20 01/05/20 01/05/20 Range/Units 11:37 11:37 11:37 WBC 12.7 H (3.5-10.8) 10^3/uL RBC 4.17 (3.70-4.87) 10^6 /uL Hgb 12.2 (12.0-16.0) g/dL Hct 37 (35-47) % MCV 89 (80-97) fL MCH 29 (27-31) pg MCHC 33 (31-36) g/dL RDW 16 H (10-15) % Plt Count 316 (150-450) 10^3/uL MPV 8.8 (7.4-10.4) fL Neut % (Auto) Pending Lymph % (Auto) Pending Meade % (Auto) Pending Eos % (Auto) Pending Baso % (Auto) Pending Absolute Neuts (auto) Pending Absolute Lymphs (auto) Pending Absolute Monos (auto) Pending Absolute Eos (auto) Pending Absolute Basos (auto) Pending Absolute Nucleated RBC Pending Nucleated RBC % Pending INR (Anticoag Therapy) 1.22 H (0.82-1.09) Sodium 139 (135-145) mmol/L Potassium 4.0 (3.5-5.0) mmol/L Chloride 107 (101-111) mmol/L Carbon Dioxide 26 (22-32) mmol/L Anion Gap 6 (2-11) mmol/L BUN 15 (6-24) mg/dL Creatinine 0.76 (0.51-0.95) mg/dL Est GFR ( Amer) 91.8 (>60) Est GFR (Non-Af Amer) 75.9 (>60) BUN/Creatinine Ratio 19.7 (8-20) Glucose 104 H (70-100) mg/dL Calcium 9.2 (8.6-10.3) mg/dL Total Bilirubin 0.50 (0.2-1.0) mg/dL AST 21 (13-39) U/L ALT 19 (7-52) U/L Alkaline Phosphatase 106 H (34-104) U/L Total Protein 7.0 (6.4-8.9) g/dL Albumin 4.3 (3.2-5.2) g/dL Globulin 2.7 (2-4) g/dL Albumin/Globulin Ratio 1.6 (1-3) Blood Type Antibody Screen 01/05/20 Range/Units 11:37 WBC (3.5-10.8) 10^3/uL RBC (3.70-4.87) 10^6 /uL Hgb (12.0-16.0) g/dL Hct (35-47) % MCV (80-97) fL MCH (27-31) pg MCHC (31-36) g/dL RDW (10-15) % Plt Count (150-450) 10^3/uL MPV (7.4-10.4) fL Neut % (Auto) Lymph % (Auto) Meade % (Auto) Eos % (Auto) Baso % (Auto) Absolute Neuts (auto) Absolute Lymphs (auto) Absolute Monos (auto) Absolute Eos (auto) Absolute Basos (auto) Absolute Nucleated RBC Nucleated RBC % INR (Anticoag Therapy) (0.82-1.09) Sodium (135-145) mmol/L Potassium (3.5-5.0) mmol/L Chloride (101-111) mmol/L Carbon Dioxide (22-32) mmol/L Anion Gap (2-11) mmol/L BUN (6-24) mg/dL Creatinine (0.51-0.95) mg/dL Est GFR ( Amer) (>60) Est GFR (Non-Af Amer) (>60) BUN/Creatinine Ratio (8-20) Glucose (70-100) mg/dL Calcium (8.6-10.3) mg/dL Total Bilirubin (0.2-1.0) mg/dL AST (13-39) U/L ALT (7-52) U/L Alkaline Phosphatase (34-104) U/L Total Protein (6.4-8.9) g/dL Albumin (3.2-5.2) g/dL Globulin (2-4) g/dL Albumin/Globulin Ratio (1-3) Blood Type Pending Antibody Screen Pending Result Diagrams: 01/05/20 11:37 01/05/20 11:37 Lab Statement: Any lab studies that have been ordered have been reviewed, and results considered in the medical decision making process. Abdominal Pain Fem Course/Dx - Course Course Of Treatment: 69 y/o F w hx IBS p/w episode of BRBPR. - VSS NAD. No appreciable stool on rectal to send for occult. - external exam w condyloma, no hemorrhoids. - no recent colonoscopy (does not want one), agreeable to CT scan. - CT w diverticulosis, no diverticulitis. Possible diverticular bleed. We'll observe the ER, patient had no recurrent bleeding. Hb stable at 12. Patient tolerating PO with no episodes of vomiting in the ER. Patient given GI follow-up. Return for continued bleeding or worsening symptoms. - Diagnoses Provider Diagnoses: GI bleed, Anemia - Provider Notifications Discussed Care Of Patient With: Swetha Pizano Time Discussed With Above Provider: 12:45 Instructed by Provider To: Other - Pt case was discussed with Dr. Pizano, who accepted the pt for admission. Discharge ED - Sign-Out/Discharge Documenting (check all that apply): Patient Departure - admit - Discharge Plan Condition: Stable Disposition: HOME Patient Education Materials: Rectal Bleeding (ED), Diverticulosis (ED) Referrals: Javier Black MD [Primary Care Provider] - Sathish Rose DO [Doctor of Osteopathy] - Additional Instructions: You were seen in the emergency department for blood your stool. This is likely from diverticulosis. Please is return if you have recurrent rectal bleeding. Please follow up with gastroenterology. Please follow up with your primary care doctor in next 2-3 days and return to emergency department for recurrent bleeding, fevers, worsening or concerning symptoms. It was a pleasure taking care of you today. - Billing Disposition and Condition Condition: STABLE Disposition: Home - Attestation Statements Document Initiated by Ashley: Yes Documenting Scribe: Ed Moss Provider For Whom Ashley is Documenting (Include Credential): Nickolas Cortez Scribe Attestation: Ed Leigh, scribed for Refugion Marsha FloresGroton on 01/05/20 at 1352. Scribe Documentation Reviewed: Yes Provider Attestation: The documentation as recorded by the Ed gutierrez accurately reflects the service I personally performed and the decisions made by Nickolas winn Status of Scribe Document: Viewed
[2020-01-05 12:15] LABS: ABS Lymphocytes 1.3 10^3/ul (1.0-4.8); ABS Monocytes 0.7 10^3/ul (0-0.8); ABS Neutrophils 10.6 10^3/ul (1.5-7.7); Eosinophil % 0.3 %; Lymphocyte % 9.9 %; Nucleated Red Blood Cells % 0.1
[2020-01-05] MEDS ORDERED: Iohexol 300* (CONTRAST) 10 ML SDV IV ONE (12:19)
[2020-01-05 14:19] VITALS: BP 154/69
== END 2020-01-05 14:17 | disposition home or self-care (01) ==
LOC: ED 10:57
DX: K92.2 Gastrointestinal hemorrhage, unspecified (principal); D64.9 Anemia, unspecified; R11.2 Nausea with vomiting, unspecified; R10.84 Generalized abdominal pain; I10 Essential (primary) hypertension; J45.909 Unspecified asthma, uncomplicated; Z90.49 Acquired absence of other specified parts of digestive tract; Z88.5 Allergy status to narcotic agent; Z88.8 Allergy status to other drugs, medicaments and biological substances; Z88.6 Allergy status to analgesic agent; Z88.1 Allergy status to other antibiotic agents; Z91.012 Allergy to eggs; Z91.040 Latex allergy status; Z96.693 Finger-joint replacement, bilateral; Z87.891 Personal history of nicotine dependence
CPT/HCPCS: 36415; 74177; 80053; 85025; 85610; 86850; 86900; 86901; 99282; Q9967

== ENCOUNTER 2020-06-16 12:51 | Observation (INO) ==
[2020-06-16] MEDS ORDERED: NS 0.9% 1000 ml BAG 1,000 ML IV ONE (13:05)
[2020-06-16 13:47] LABS: Hematocrit 33 % (35-47); Hemoglobin 11.1 g/dL (12.0-16.0); Mean Corpuscular HGB Conc 33 g/dL (31-36); Mean Corpuscular Hemoglobin 29 pg (27-31); Mean Corpuscular Volume 87 fL (80-97); Mean Platelet Volume 8.7 fL (7.4-10.4); Platelet Count 360 10^3/uL (150-450); Red Blood Count 3.82 10^6 /uL (3.70-4.87); Red Cell Distribution Width 15 % (10-15); White Blood Count 7.1 10^3/uL (3.5-10.8)
[2020-06-16 14:13] LABS: ABS Basophils 0.1 10^3/ul (0-0.2); ABS Lymphocytes 0.7 10^3/ul (1.0-4.8); ABS Monocytes 0.6 10^3/ul (0-0.8); ABS Neutrophils 5.7 10^3/ul (1.5-7.7); Lymphocyte % 10.2 %; Nucleated Red Blood Cells % 0.1
[2020-06-16 14:25] LABS: ALT 20 U/L (7-52); AST 32 U/L (13-39); Albumin/Globulin Ratio 1.5 (1-3); Alkaline Phosphatase 106 U/L (34-104); Anion Gap 12 mmol/L (2-11); BUN/Creatinine Ratio 17.9 (8-20); Blood Urea Nitrogen 12 mg/dL (6-24); C Reactive Protein 44.41 mg/L (<8.01); CO2 Carbon Dioxide 21 mmol/L (22-32); Calcium 8.5 mg/dL (8.6-10.3); Chloride 103 mmol/L (101-111); EGFR African American 106.2 (>60); EGFR Non-African American 87.8 (>60); Globulin 2.7 g/dL (2-4); Glucose 72 mg/dL (70-100); Lipase < 10 U/L (11.0-82.0); Magnesium 1.9 mg/dL (1.9-2.7); Sodium 136 mmol/L (135-145); Total Protein 6.7 g/dL (6.4-8.9)
[2020-06-16] MEDS ORDERED: Midazolam 10 mg/10 ml VIAL 1 mg/ml 10 ml VIAL (10 mg) ONE (16:05)
[2020-06-16] MEDS ORDERED: fentaNYL 100 mcg/2 ml 50 MCG/ML VIAL ONE (16:05)
[2020-06-16] MEDS ORDERED: Ondansetron 4 mg VIAL 2 MG/ML 2 ml VIAL IV PRN (17:46)
[2020-06-16 18:01] LABS: Urine Appearance Clear; Urine Bilirubin Negative (Negative); Urine Blood Negative (Negative); Urine Color Yellow; Urine Glucose Negative (Negative); Urine Ketones 2+ (Negative); Urine Nitrite Negative (Negative); Urine Protein 1+(30 mg/dL) (Negative); Urine Specific Gravity 1.015 (1.010-1.030); Urine Urobilinogen Negative (Negative)
[2020-06-16 18:13] LABS: Urine Bacteria Absent (Absent); Urine Red Blood Cell Trace(0-2/hpf) (Absent); Urine Squamous Epithelial Cell Present (Absent); Urine White Blood Cell 1+(6-10/hpf) (Absent)
[2020-06-16] MEDS: NS 0.9% 1000 ml BAG 1,000 ML IV SCH (20:55)
[2020-06-17 07:01] LABS: ABS Basophils 0.1 10^3/ul (0-0.2); ABS Lymphocytes 0.9 10^3/ul (1.0-4.8); ABS Monocytes 0.2 10^3/ul (0-0.8); ABS Neutrophils 4.4 10^3/ul (1.5-7.7); Hematocrit 29 % (35-47); Hemoglobin 9.8 g/dL (12.0-16.0); Lymphocyte % 16.4 %; Mean Corpuscular HGB Conc 34 g/dL (31-36); Mean Corpuscular Hemoglobin 30 pg (27-31); Mean Corpuscular Volume 88 fL (80-97); Mean Platelet Volume 9.1 fL (7.4-10.4); Nucleated Red Blood Cells % 0.1; Platelet Count 327 10^3/uL (150-450); Red Blood Count 3.28 10^6 /uL (3.70-4.87); Red Cell Distribution Width 15 % (10-15); White Blood Count 5.6 10^3/uL (3.5-10.8)
[2020-06-17 07:30] LABS: BUN/Creatinine Ratio 16.1 (8-20); Calcium 7.6 mg/dL (8.6-10.3); EGFR African American 130.7 (>60); Potassium 3.7 mmol/L (3.5-5.0)
[2020-06-17] MEDS: NS 0.9% 1000 ml BAG 1,000 ML IV SCH ×2 (12:01→12:05)
[2020-06-17] MEDS: Sucralfate 1 gm SUSP 1 GM/10 ML UDC PO SCH ×2 (16:51→21:32)
[2020-06-17 19:36] LABS: Hematocrit 28 % (35-47); Hemoglobin 9.4 g/dL (12.0-16.0)
[2020-06-17] MEDS: Ondansetron 4 mg VIAL 2 MG/ML 2 ml VIAL IV SCH (21:32)
[2020-06-18] MEDS: NS 0.9% 1000 ml BAG 1,000 ML IV SCH (04:29)
[2020-06-18] MEDS: Ondansetron 4 mg VIAL 2 MG/ML 2 ml VIAL IV SCH ×2 (04:30→11:49)
[2020-06-18 05:41] LABS: Hematocrit 29 % (35-47); Hemoglobin 9.8 g/dL (12.0-16.0); Mean Corpuscular HGB Conc 34 g/dL (31-36); Mean Corpuscular Hemoglobin 29 pg (27-31); Mean Corpuscular Volume 86 fL (80-97); Mean Platelet Volume 8.7 fL (7.4-10.4); Platelet Count 347 10^3/uL (150-450); Red Blood Count 3.37 10^6 /uL (3.70-4.87); Red Cell Distribution Width 15 % (10-15); White Blood Count 3.6 10^3/uL (3.5-10.8)
[2020-06-18 06:07] LABS: % Iron Saturation 12 % (15-55); Iron 22 ug/dL (50-212); Total Iron Binding Capacity 178 mcg/dL (250-450); Transferrin 127 mg/dL (203-362); Unsaturated Iron Binding < 163 ug/dL
[2020-06-18 06:30] LABS: Folate 14.16 ng/mL (>3.99)
[2020-06-18 06:31] LABS: Vitamin B12 > 1450 pg/mL (180-914)
[2020-06-18 07:33] LABS: ABS Lymphocytes 0.8 10^3/ul (1.0-4.8); ABS Monocytes 0.3 10^3/ul (0-0.8); ABS Neutrophils 2.6 10^3/ul (1.5-7.7); Eosinophil % 0.2 %; Lymphocyte % 20.9 %; Nucleated Red Blood Cells % 0.1
[2020-06-18] MEDS: Sucralfate 1 gm SUSP 1 GM/10 ML UDC PO SCH ×2 (08:44→11:58)
[2020-06-18] MEDS ORDERED: Iron Sucrose 200 MG in NS 0.9% 100 ml BAG 100 ML IVPB SCH (09:00)
[2020-06-18 11:22] VITALS: BP 135/56
== END 2020-06-18 15:45 | disposition home or self-care (01) ==
LOC: ED 12:51 → MED 12:51
PROVIDERS: ADMIT Internal Medicine; ATTEND Internal Medicine

== ENCOUNTER 2020-11-25 11:22 | Inpatient (IN) ==
[2020-11-25 11:59] LABS: ABS Neutrophils 1.8 10^3/ul (1.5-7.7)
[2020-11-25 12:00] LABS: Hematocrit 34 % (35-47); Hemoglobin 11.3 g/dL (12.0-16.0); Mean Corpuscular HGB Conc 34 g/dL (31-36); Mean Corpuscular Hemoglobin 30 pg (27-31); Mean Corpuscular Volume 88 fL (80-97); Red Cell Distribution Width 15 % (10-15); White Blood Count 2.8 10^3/uL (3.5-10.8)
[2020-11-25] MEDS ORDERED: Ondansetron 4 mg VIAL 2 MG/ML 2 ml VIAL IV PRN (12:13)
[2020-11-25] MEDS ORDERED: Albuterol HFA INHALER 8 gm MDI INH PRN (12:17)
[2020-11-25] MEDS ORDERED: Albuterol 2.5mg/3 ml (0.083%) NEB.SOLN INH PRN (12:17)
[2020-11-25 12:22] LABS: ALT 27 U/L (7-52); AST 55 U/L (13-39); Albumin 3.2 g/dL (3.2-5.2); Albumin/Globulin Ratio 1.5 (1-3); Alkaline Phosphatase 67 U/L (34-104); Anion Gap 8 mmol/L (2-11); BUN/Creatinine Ratio 22.9 (8-20); Blood Urea Nitrogen 11 mg/dL (6-24); CO2 Carbon Dioxide 22 mmol/L (22-32); Calcium 7.6 mg/dL (8.6-10.3); Chloride 107 mmol/L (101-111); EGFR African American 155.6 (>60); EGFR Non-African American 128.6 (>60); Globulin 2.2 g/dL (2-4); Glucose 74 mg/dL (70-100); Potassium 3.4 mmol/L (3.5-5.0); Sodium 137 mmol/L (135-145); Total Protein 5.4 g/dL (6.4-8.9)
[2020-11-25 12:38] LABS: ABS Lymphocytes 0.6 10^3/ul (1.0-4.8); ABS Monocytes 0.4 10^3/ul (0-0.8); Eosinophil % 0.1 %; Lymphocyte % 19.7 %; Nucleated Red Blood Cells % 0.1
[2020-11-25 12:43] LABS: Total Iron Binding Capacity 179 mcg/dL (250-450); Transferrin 128 mg/dL (203-362)
[2020-11-25 12:45] LABS: Mean Platelet Volume 9.9 fL (7.4-10.4); Platelet Count 86 10^3/uL (150-450)
[2020-11-25] MEDS ORDERED: Enoxaparin 40 MG/0.4 ML SYR SUBCUT SCH (13:00)
[2020-11-25 13:47] LABS: Ferritin 2509.6 ng/mL (11-307)
[2020-11-25] MEDS: NS 0.9% 1000 ml BAG 1,000 ML IV SCH (16:11)
[2020-11-25] MEDS: KCL 20 MEQ/100 ML IVPREMIX 20 MEQ/100 ML BAG IV SCH ×4 (16:50→23:01)
[2020-11-25] MEDS: Magic MouthWash1-BEN/MAAL/LIDO 180 ML BTL SWISH SPIT SCH ×2 (18:17→21:16)
[2020-11-26] MEDS: NS 0.9% 1000 ml BAG 1,000 ML IV SCH (01:56)
[2020-11-26 06:17] LABS: Hematocrit 28 % (35-47); Hemoglobin 9.4 g/dL (12.0-16.0); Mean Corpuscular HGB Conc 33 g/dL (31-36); Mean Corpuscular Hemoglobin 30 pg (27-31); Mean Corpuscular Volume 90 fL (80-97); Mean Platelet Volume 10.2 fL (7.4-10.4); Platelet Count 98 10^3/uL (150-450); Red Blood Count 3.16 10^6 /uL (3.70-4.87); Red Cell Distribution Width 14 % (10-15)
[2020-11-26 06:23] LABS: Albumin/Globulin Ratio 1.3 (1-3); BUN/Creatinine Ratio 16.3 (8-20); Calcium 7.6 mg/dL (8.6-10.3); EGFR Non-African American 125.6 (>60); Globulin 2.4 g/dL (2-4); Potassium 4.1 mmol/L (3.5-5.0); Total Bilirubin 0.8 mg/dL (0.2-1.0); Total Protein 5.4 g/dL (6.4-8.9)
[2020-11-26 06:53] LABS: ABS Lymphocytes 0.5 10^3/ul (1.0-4.8); ABS Monocytes 0.3 10^3/ul (0-0.8); ABS Neutrophils 1.1 10^3/ul (1.5-7.7); Eosinophil % 0.1 %; Lymphocyte % 27.2 %
[2020-11-26] MEDS: Magic MouthWash1-BEN/MAAL/LIDO 180 ML BTL SWISH SPIT SCH ×4 (10:18→21:35)
[2020-11-26] MEDS ORDERED: Lidocaine 2% PF 5 ML VIAL INJ ONE (11:19)
[2020-11-27] MEDS: Magic MouthWash1-BEN/MAAL/LIDO 180 ML BTL SWISH SPIT SCH (09:09)
[2020-11-27 14:22] LABS: Immunoglobulin A 162 mg/dL (61 - 356); Immunoglobulin G 1090 mg/dL (767 - 1590); Immunoglobulin M 70 mg/dL (37 - 286)
[2020-11-27 15:04] VITALS: BP 122/59
[2020-11-28 00:47] LABS: Lambda Free Light Chain 3.18 mg/dL
[2020-12-08 14:53] LABS: Case Number CR-21-2451
[2020-12-11 13:21] LABS: BM Result Summary Abnormal
[2020-12-16 15:15] LABS: AML Result Summary Abnormal
== END 2020-11-27 10:50 | disposition home health service (06) | DRG 815 ==
LOC: CHOA 11:22 → MEDTELE 15:34
PROVIDERS: ADMIT Internal Medicine Hematology & Oncology; ATTEND Internal Medicine Hematology & Oncology

== ENCOUNTER 2020-11-30 17:22 | Inpatient (IN) ==
[2020-11-30 21:04] LABS: ABS Lymphocytes 0.5 10^3/ul (1.0-4.8); ABS Monocytes 0.2 10^3/ul (0-0.8); ABS Neutrophils 1.5 10^3/ul (1.5-7.7); Eosinophil % 0.1 %; Hematocrit 30 % (35-47); Hemoglobin 10.1 g/dL (12.0-16.0); Lymphocyte % 24.2 %; Mean Corpuscular HGB Conc 34 g/dL (31-36); Mean Corpuscular Hemoglobin 30 pg (27-31); Mean Corpuscular Volume 89 fL (80-97); Mean Platelet Volume 10.1 fL (7.4-10.4); Nucleated Red Blood Cells % 0.3; Platelet Count 125 10^3/uL (150-450); Red Blood Count 3.38 10^6 /uL (3.70-4.87); Red Cell Distribution Width 14 % (10-15); White Blood Count 2.3 10^3/uL (3.5-10.8)
[2020-11-30 21:19] LABS: Albumin 3.4 g/dL (3.2-5.2); Albumin/Globulin Ratio 1.2 (1-3); BUN/Creatinine Ratio 21.2 (8-20); C Reactive Protein 6.49 mg/L (<8.01); Calcium 8.5 mg/dL (8.6-10.3); EGFR African American 141.9 (>60); EGFR Non-African American 117.3 (>60); Globulin 2.9 g/dL (2-4); Potassium 3.6 mmol/L (3.5-5.0); Total Bilirubin 0.9 mg/dL (0.2-1.0); Total Protein 6.3 g/dL (6.4-8.9)
[2020-11-30 22:04] LABS: Urine Appearance Cloudy; Urine Bilirubin Negative (Negative); Urine Blood Negative (Negative); Urine Color Amber; Urine Glucose Negative (Negative); Urine Ketones 1+ (Negative); Urine Nitrite Negative (Negative); Urine Protein 1+(30 mg/dL) (Negative); Urine Specific Gravity 1.023 (1.010-1.030); Urine Urobilinogen Positive (Negative)
[2020-11-30 22:10] LABS: Urine Bacteria Absent (Absent); Urine Red Blood Cell Absent (Absent); Urine Squamous Epithelial Cell Present (Absent); Urine White Blood Cell Trace(0-5/hpf) (Absent)
[2020-11-30] MEDS: NS 0.9% 1000 ml BAG 1,000 ML IV ONE (22:43)
[2020-12-01] MEDS: NS 0.9% 1000 ml BAG 1,000 ML IV ONE (00:53)
[2020-12-01] MEDS ORDERED: NS 0.9% 1000 ml BAG 1,000 ML IV ONE (01:26)
[2020-12-01] MEDS: Zinc Oxide 16% PASTE (Butt Paste) 30 gm TUBE TOPICAL SCH ×2 (09:11→22:01)
[2020-12-02] MEDS: Zinc Oxide 16% PASTE (Butt Paste) 30 gm TUBE TOPICAL SCH ×2 (10:07→20:20)
[2020-12-02] MEDS: Magic MouthWash2-BEN/MAAL/LIDO/NYST 240 ML BTL (alt formulation) SWISH SPIT SCH ×4 (10:07→20:20)
[2020-12-03] MEDS: Magic MouthWash2-BEN/MAAL/LIDO/NYST 240 ML BTL (alt formulation) SWISH SPIT SCH ×3 (00:25→12:33)
[2020-12-03 05:32] LABS: Hematocrit 26 % (35-47); Hemoglobin 8.6 g/dL (12.0-16.0); Mean Corpuscular HGB Conc 33 g/dL (31-36); Mean Corpuscular Hemoglobin 29 pg (27-31); Mean Corpuscular Volume 88 fL (80-97); Mean Platelet Volume 9.6 fL (7.4-10.4); Platelet Count 103 10^3/uL (150-450); Red Blood Count 2.91 10^6 /uL (3.70-4.87); Red Cell Distribution Width 14 % (10-15); White Blood Count 1.6 10^3/uL (3.5-10.8)
[2020-12-03 05:48] LABS: BUN/Creatinine Ratio 16.3 (8-20); Calcium 8.2 mg/dL (8.6-10.3); EGFR African American 176.7 (>60); Potassium 3.2 mmol/L (3.5-5.0)
[2020-12-03 06:45] LABS: ABS Lymphocytes 0.5 10^3/ul (1.0-4.8); ABS Monocytes 0.1 10^3/ul (0-0.8); Eosinophil % 0.1 %; Nucleated Red Blood Cells % 0.1
[2020-12-03] MEDS: Zinc Oxide 16% PASTE (Butt Paste) 30 gm TUBE TOPICAL SCH (09:56)
[2020-12-03 11:39] VITALS: BP 122/95
[2020-12-03] MEDS ORDERED: Potassium Chlor 20 meq TAB.ER PO ONE (13:15)
== END 2020-12-03 14:48 | disposition swing bed (61) | DRG 947 ==
LOC: SSU 17:22 → ED 17:22 → SSU 12-01 03:17
PROVIDERS: ADMIT Student in an Organized Health Care Education/Training Program; ATTEND Student in an Organized Health Care Education/Training Program

== ENCOUNTER 2020-12-03 14:49 | Inpatient (IN) ==
[2020-12-03] MEDS ORDERED: Albuterol 2.5mg/3 ml (0.083%) NEB.SOLN INH PRN (15:01)
[2020-12-03] MEDS: Magic MouthWash2-BEN/MAAL/LIDO/NYST 240 ML BTL (alt formulation) SWISH SPIT SCH ×2 (15:57→20:40)
[2020-12-03] MEDS ORDERED: Senna TAB 8.6 mg TAB PO PRN (16:18)
[2020-12-03] MEDS: Zinc Oxide 16% PASTE (Butt Paste) 30 gm TUBE TOPICAL SCH (20:40)
[2020-12-04] MEDS: Magic MouthWash2-BEN/MAAL/LIDO/NYST 240 ML BTL (alt formulation) SWISH SPIT SCH ×5 (02:03→20:05)
[2020-12-04 04:40] LABS: Hematocrit 25 % (35-47); Hemoglobin 8.6 g/dL (12.0-16.0); Mean Corpuscular HGB Conc 34 g/dL (31-36); Mean Corpuscular Hemoglobin 30 pg (27-31); Mean Corpuscular Volume 87 fL (80-97); Mean Platelet Volume 9.6 fL (7.4-10.4); Platelet Count 107 10^3/uL (150-450); Red Blood Count 2.88 10^6 /uL (3.70-4.87); Red Cell Distribution Width 14 % (10-15); White Blood Count 1.7 10^3/uL (3.5-10.8)
[2020-12-04 06:44] LABS: ABS Lymphocytes 0.5 10^3/ul (1.0-4.8); ABS Monocytes 0.1 10^3/ul (0-0.8); Eosinophil % 0.1 %; Lymphocyte % 28.2 %; Nucleated Red Blood Cells % 0.2
[2020-12-04] MEDS: Zinc Oxide 16% PASTE (Butt Paste) 30 gm TUBE TOPICAL SCH ×2 (08:59→20:05)
[2020-12-04] MEDS: Polyethylene Glycol 3350 17 GM PACKET PO SCH (09:00)
[2020-12-05] MEDS: Magic MouthWash2-BEN/MAAL/LIDO/NYST 240 ML BTL (alt formulation) SWISH SPIT SCH ×5 (06:24→20:14)
[2020-12-05] MEDS: Zinc Oxide 16% PASTE (Butt Paste) 30 gm TUBE TOPICAL SCH ×2 (08:28→20:13)
[2020-12-05] MEDS: Polyethylene Glycol 3350 17 GM PACKET PO SCH (08:28)
[2020-12-05 10:09] LABS: Uric Acid 3.7 mg/dL (2.3-6.6)
[2020-12-05] MEDS ORDERED: Ondansetron ODT 4 mg TAB 4 MG TAB SL PRN (13:41)
[2020-12-05] MEDS ORDERED: Ondansetron ODT 4 mg TAB 4 MG TAB ONE (13:45)
[2020-12-06] MEDS: Polyethylene Glycol 3350 17 GM PACKET PO SCH (11:33)
[2020-12-06] MEDS: Magic MouthWash2-BEN/MAAL/LIDO/NYST 240 ML BTL (alt formulation) SWISH SPIT SCH ×4 (12:15→23:20)
[2020-12-06] MEDS: Zinc Oxide 16% PASTE (Butt Paste) 30 gm TUBE TOPICAL SCH ×2 (12:15→21:07)
[2020-12-07 08:48] LABS: ABS Lymphocytes 0.6 10^3/ul (1.0-4.8); ABS Monocytes 0.2 10^3/ul (0-0.8); ABS Neutrophils 4.6 10^3/ul (1.5-7.7); Eosinophil % 0.1 %; Hematocrit 25 % (35-47); Hemoglobin 8.3 g/dL (12.0-16.0); Mean Corpuscular HGB Conc 34 g/dL (31-36); Mean Corpuscular Hemoglobin 30 pg (27-31); Mean Corpuscular Volume 89 fL (80-97); Mean Platelet Volume 9.2 fL (7.4-10.4); Nucleated Red Blood Cells % 0.1; Platelet Count 111 10^3/uL (150-450); Red Blood Count 2.79 10^6 /uL (3.70-4.87); Red Cell Distribution Width 14 % (10-15); White Blood Count 5.5 10^3/uL (3.5-10.8)
[2020-12-07] MEDS: Magic MouthWash2-BEN/MAAL/LIDO/NYST 240 ML BTL (alt formulation) SWISH SPIT SCH ×4 (10:49→23:05)
[2020-12-07] MEDS: Zinc Oxide 16% PASTE (Butt Paste) 30 gm TUBE TOPICAL SCH ×2 (10:51→20:26)
[2020-12-07] MEDS: Polyethylene Glycol 3350 17 GM PACKET PO SCH (10:51)
[2020-12-07] MEDS: Dexamethasone 0.1 MG/ML ORALSYR SWISH SPIT SCH ×3 (14:54→23:06)
[2020-12-08 08:27] LABS: Hematocrit 25 % (35-47); Hemoglobin 8.5 g/dL (12.0-16.0); Mean Corpuscular HGB Conc 34 g/dL (31-36); Mean Corpuscular Hemoglobin 30 pg (27-31); Mean Corpuscular Volume 89 fL (80-97); Mean Platelet Volume 9.7 fL (7.4-10.4); Platelet Count 120 10^3/uL (150-450); Red Blood Count 2.86 10^6 /uL (3.70-4.87); Red Cell Distribution Width 14 % (10-15); White Blood Count 4.3 10^3/uL (3.5-10.8)
[2020-12-08 09:28] LABS: ABS Lymphocytes 0.7 10^3/ul (1.0-4.8); ABS Monocytes 0.2 10^3/ul (0-0.8); ABS Neutrophils 3.5 10^3/ul (1.5-7.7); Eosinophil % 0.1 %; Lymphocyte % 15.2 %
[2020-12-08] MEDS: Magic MouthWash2-BEN/MAAL/LIDO/NYST 240 ML BTL (alt formulation) SWISH SPIT SCH ×4 (10:02→22:36)
[2020-12-08] MEDS: Dexamethasone 0.1 MG/ML ORALSYR SWISH SPIT SCH ×4 (10:03→22:36)
[2020-12-08] MEDS: Polyethylene Glycol 3350 17 GM PACKET PO SCH (10:06)
[2020-12-08] MEDS: Zinc Oxide 16% PASTE (Butt Paste) 30 gm TUBE TOPICAL SCH ×2 (10:06→20:38)
[2020-12-09 08:12] VITALS: BP 105/49
[2020-12-09] MEDS: Dexamethasone 0.1 MG/ML ORALSYR SWISH SPIT SCH ×2 (09:13→14:42)
[2020-12-09] MEDS: Polyethylene Glycol 3350 17 GM PACKET PO SCH (09:13)
[2020-12-09] MEDS: Magic MouthWash2-BEN/MAAL/LIDO/NYST 240 ML BTL (alt formulation) SWISH SPIT SCH ×2 (09:14→14:41)
[2020-12-09] MEDS: Zinc Oxide 16% PASTE (Butt Paste) 30 gm TUBE TOPICAL SCH (14:42)
== END 2020-12-09 15:45 | disposition home or self-care (01) | DRG 811 ==
LOC: SSU 14:49 → MED 12-06 09:21
PROVIDERS: ADMIT Internal Medicine; ATTEND Hospitalist

== ENCOUNTER 2021-02-08 09:33 | Inpatient (IN) ==
[2021-02-08] MEDS ORDERED: NS 0.9% 1000 ml BAG 1,000 ML IV SCH ×2 (09:45→13:15)
[2021-02-08 11:06] LABS: Hematocrit 15 % (35-47); Hemoglobin 5.1 g/dL (12.0-16.0); Mean Corpuscular HGB Conc 33 g/dL (31-36); Mean Corpuscular Hemoglobin 31 pg (27-31); Mean Corpuscular Volume 92 fL (80-97); Red Blood Count 1.65 10^6 /uL (3.70-4.87); Red Cell Distribution Width 19 % (10-15); White Blood Count 1.2 10^3/uL (3.5-10.8)
[2021-02-08 11:14] LABS: Activated Partial Thrombo Time 25.2 seconds (26.0-38.0); INR 1.2 (0.82-1.09)
[2021-02-08 11:20] LABS: ALT 19 U/L (7-52); Albumin 2.8 g/dL (3.2-5.2); Alkaline Phosphatase 60 U/L (34-104); BUN/Creatinine Ratio 14.5 (8-20); Blood Urea Nitrogen 8 mg/dL (6-24); C Reactive Protein 55.77 mg/L (<8.01); CO2 Carbon Dioxide 22 mmol/L (22-32); Calcium 7.6 mg/dL (8.6-10.3); Chloride 98 mmol/L (101-111); Creatine Kinase 80 U/L (10-223); EGFR Non-African American 109.9 (>60); Globulin 2.9 g/dL (2-4); Glucose 87 mg/dL (70-100); Sodium 126 mmol/L (135-145); Total Protein 5.7 g/dL (6.4-8.9)
[2021-02-08 11:34] LABS: Anion Gap 6 mmol/L (2-11)
[2021-02-08 11:39] LABS: ABS Lymphocytes 0.1 10^3/ul (1.0-4.8); Eosinophil % 0.2 %; Lymphocyte % 11.1 %; Mean Platelet Volume 8.1 fL (7.4-10.4); Platelet Count 35 10^3/uL (150-450)
[2021-02-08] MEDS ORDERED: Ondansetron 4 mg VIAL 2 MG/ML 2 ml VIAL IV PRN (13:05)
[2021-02-08] MEDS ORDERED: Albuterol 2.5mg/3 ml (0.083%) NEB.SOLN INH PRN (13:10)
[2021-02-08] MEDS ORDERED: Magic MouthWash1-BEN/MAAL/LIDO 180 ML BTL SWISH SPIT PRN (13:10)
[2021-02-08] MEDS ORDERED: Tacrolimus 0.1% OINT (NF) 1 TUBE TOPICAL SCH (14:00)
[2021-02-08] MEDS: Levofloxacin 750 MG IVPREMIX 750 MG/150 ML BAG IVPB SCH (21:46)
[2021-02-08 22:29] LABS: Potassium Redraw 3.4 mmol/L (3.5-5.0)
[2021-02-09 06:35] LABS: Urine Appearance Clear; Urine Bilirubin Negative (Negative); Urine Blood Negative (Negative); Urine Color Yellow; Urine Glucose Negative (Negative); Urine Ketones 1+ (Negative); Urine Nitrite Negative (Negative); Urine Protein 1+(30 mg/dL) (Negative); Urine Specific Gravity 1.016 (1.010-1.030); Urine Urobilinogen Negative (Negative)
[2021-02-09 06:36] LABS: Albumin 2.3 g/dL (3.2-5.2); Albumin/Globulin Ratio 0.9 (1-3); BUN/Creatinine Ratio 14.3 (8-20); Calcium 7.2 mg/dL (8.6-10.3); EGFR Non-African American 125.6 (>60); Globulin 2.5 g/dL (2-4); Potassium 3.4 mmol/L (3.5-5.0); Total Bilirubin 0.9 mg/dL (0.2-1.0); Total Protein 4.8 g/dL (6.4-8.9)
[2021-02-09 07:06] LABS: ABS Lymphocytes 0.2 10^3/ul (1.0-4.8); ABS Neutrophils 1.1 10^3/ul (1.5-7.7); Eosinophil % 0.3 %; Hematocrit 24 % (35-47); Hemoglobin 8.3 g/dL (12.0-16.0); Lymphocyte % 14.1 %; Mean Corpuscular HGB Conc 35 g/dL (31-36); Mean Corpuscular Hemoglobin 31 pg (27-31); Mean Corpuscular Volume 88 fL (80-97); Mean Platelet Volume 7.9 fL (7.4-10.4); Nucleated Red Blood Cells % 0.2; Platelet Count 22 10^3/uL (150-450); Red Blood Count 2.72 10^6 /uL (3.70-4.87); Red Cell Distribution Width 17 % (10-15); White Blood Count 1.3 10^3/uL (3.5-10.8)
[2021-02-09 07:17] LABS: Urine Bacteria Absent (Absent); Urine Red Blood Cell Trace(0-2/hpf) (Absent); Urine Squamous Epithelial Cell Present (Absent); Urine White Blood Cell 1+(6-10/hpf) (Absent)
[2021-02-09] MEDS: Calcium Polycarbophil 625mg TB PO SCH (07:50)
[2021-02-09] MEDS: NS 0.9% 1000 ml BAG 1,000 ML IV SCH ×2 (11:28→14:19)
[2021-02-09] MEDS: Levofloxacin 750 MG IVPREMIX 750 MG/150 ML BAG IVPB SCH (19:28)
[2021-02-10] MEDS: NS 0.9% 1000 ml BAG 1,000 ML IV SCH (02:34)
[2021-02-10 05:00] LABS: ABS Lymphocytes 0.2 10^3/ul (1.0-4.8); ABS Neutrophils 0.8 10^3/ul (1.5-7.7); Eosinophil % 0.4 %; Hematocrit 24 % (35-47); Hemoglobin 8.2 g/dL (12.0-16.0); Lymphocyte % 16.7 %; Mean Corpuscular HGB Conc 35 g/dL (31-36); Mean Corpuscular Hemoglobin 31 pg (27-31); Mean Corpuscular Volume 88 fL (80-97); Nucleated Red Blood Cells % 0.1; Red Blood Count 2.69 10^6 /uL (3.70-4.87); Red Cell Distribution Width 17 % (10-15)
[2021-02-10 05:20] LABS: Albumin 2.2 g/dL (3.2-5.2); Albumin/Globulin Ratio 0.9 (1-3); Calcium 7.2 mg/dL (8.6-10.3); EGFR African American 159.5 (>60); EGFR Non-African American 131.8 (>60); Globulin 2.4 g/dL (2-4); Potassium 3.5 mmol/L (3.5-5.0); Total Bilirubin 0.7 mg/dL (0.2-1.0); Total Protein 4.6 g/dL (6.4-8.9)
[2021-02-10 05:22] LABS: Mean Platelet Volume 7.8 fL (7.4-10.4); Platelet Count 22 10^3/uL (150-450)
[2021-02-10] MEDS: Calcium Polycarbophil 625mg TB PO SCH (10:10)
[2021-02-10] MEDS: Dexamethasone 0.1 MG/ML ORALSYR SWISH SPIT SCH ×3 (13:23→20:39)
[2021-02-10] MEDS: Levofloxacin 750 MG IVPREMIX 750 MG/150 ML BAG IVPB SCH (20:39)
[2021-02-11] MEDS: Calcium Polycarbophil 625mg TB PO SCH (10:36)
[2021-02-11] MEDS: Dexamethasone 0.1 MG/ML ORALSYR SWISH SPIT SCH ×4 (13:46→22:07)
[2021-02-11] MEDS: Pantoprazole VIAL 40 MG VIAL IV SCH (13:47)
[2021-02-11] MEDS: NS 0.9% 1000 ml BAG 1,000 ML IV SCH (19:39)
[2021-02-11] MEDS: GLYCERIN (BULK BTL) 177 ML SCH (22:07)
[2021-02-12 04:51] LABS: Hematocrit 22 % (35-47); Hemoglobin 7.5 g/dL (12.0-16.0); Mean Corpuscular HGB Conc 35 g/dL (31-36); Mean Corpuscular Hemoglobin 30 pg (27-31); Mean Corpuscular Volume 88 fL (80-97); Red Blood Count 2.47 10^6 /uL (3.70-4.87); Red Cell Distribution Width 17 % (10-15); White Blood Count 0.7 10^3/uL (3.5-10.8)
[2021-02-12 04:52] LABS: ABS Lymphocytes 0.2 10^3/ul (1.0-4.8); ABS Neutrophils 0.5 10^3/ul (1.5-7.7); Eosinophil % 0.6 %; Lymphocyte % 22.9 %
[2021-02-12 05:03] LABS: Albumin/Globulin Ratio 0.8 (1-3); Calcium 7.2 mg/dL (8.6-10.3); EGFR African American 192.1 (>60); EGFR Non-African American 158.7 (>60); Globulin 2.4 g/dL (2-4); Total Bilirubin 0.7 mg/dL (0.2-1.0); Total Protein 4.4 g/dL (6.4-8.9)
[2021-02-12 05:14] LABS: Potassium 2.7 mmol/L (3.5-5.0)
[2021-02-12 06:33] LABS: Magnesium 1.6 mg/dL (1.9-2.7)
[2021-02-12 08:42] LABS: Mean Platelet Volume 7.9 fL (7.4-10.4); Platelet Count 15 10^3/uL (150-450)
[2021-02-12] MEDS: GLYCERIN (BULK BTL) 177 ML SCH ×4 (09:26→22:05)
[2021-02-12] MEDS: Dexamethasone 0.1 MG/ML ORALSYR SWISH SPIT SCH ×5 (09:26→22:05)
[2021-02-12] MEDS: Calcium Polycarbophil 625mg TB PO SCH (09:27)
[2021-02-12] MEDS: Pantoprazole VIAL 40 MG VIAL IV SCH (09:32)
[2021-02-12] MEDS ORDERED: Piperacillin/Tazobac ADVAN 3.375 GM in NS 0.9% 100 ml BAG 100 ML IV ONE (10:19)
[2021-02-12] MEDS: KCL 20 MEQ/100 ML IVPREMIX 20 MEQ/100 ML BAG IV SCH ×3 (10:34→16:51)
[2021-02-12] MEDS ORDERED: Zosyn per Pharmacy NOTE FOLLOW UP SCH (11:00)
[2021-02-12] MEDS: ZOSYN 3.375 GM Q8H per EXTENDED INFUSION IV SCH (16:48)
[2021-02-13] MEDS: ZOSYN 3.375 GM Q8H per EXTENDED INFUSION IV SCH ×4 (00:22→23:45)
[2021-02-13] MEDS: NS 0.9% 1000 ml BAG 1,000 ML IV SCH (02:49)
[2021-02-13 06:47] LABS: Hematocrit 31 % (35-47); Hemoglobin 10.5 g/dL (12.0-16.0); Mean Corpuscular HGB Conc 34 g/dL (31-36); Mean Corpuscular Hemoglobin 30 pg (27-31); Mean Corpuscular Volume 88 fL (80-97); Red Blood Count 3.52 10^6 /uL (3.70-4.87); Red Cell Distribution Width 16 % (10-15); White Blood Count 1.1 10^3/uL (3.5-10.8)
[2021-02-13 06:50] LABS: Albumin 2.2 g/dL (3.2-5.2); Albumin/Globulin Ratio 0.8 (1-3); BUN/Creatinine Ratio 19.5 (8-20); Calcium 7.4 mg/dL (8.6-10.3); EGFR African American 186.7 (>60); EGFR Non-African American 154.3 (>60); Globulin 2.6 g/dL (2-4); Potassium 3.5 mmol/L (3.5-5.0); Total Bilirubin 0.9 mg/dL (0.2-1.0); Total Protein 4.8 g/dL (6.4-8.9)
[2021-02-13 07:37] LABS: ABS Lymphocytes 0.2 10^3/ul (1.0-4.8); ABS Neutrophils 0.8 10^3/ul (1.5-7.7); Eosinophil % 1.1 %; Lymphocyte % 22.6 %; Mean Platelet Volume 10.5 fL (7.4-10.4); Platelet Count 20 10^3/uL (150-450)
[2021-02-13] MEDS: Pantoprazole VIAL 40 MG VIAL IV SCH (08:30)
[2021-02-13] MEDS: Calcium Polycarbophil 625mg TB PO SCH (08:32)
[2021-02-13] MEDS: Dexamethasone 0.1 MG/ML ORALSYR SWISH SPIT SCH ×4 (08:43→21:35)
[2021-02-13] MEDS ORDERED: KCL 20 MEQ/100 ML IVPREMIX 20 MEQ/100 ML BAG IV ONE (08:52)
[2021-02-13] MEDS: GLYCERIN (BULK BTL) 177 ML SCH ×4 (10:50→22:00)
[2021-02-14 06:01] LABS: BUN/Creatinine Ratio 15.6 (8-20); Calcium 7.3 mg/dL (8.6-10.3); EGFR African American 167.7 (>60); EGFR Non-African American 138.6 (>60); Potassium 3.3 mmol/L (3.5-5.0)
[2021-02-14 06:21] LABS: ABS Lymphocytes 0.2 10^3/ul (1.0-4.8); Eosinophil % 1.5 %; Hematocrit 31 % (35-47); Hemoglobin 10.7 g/dL (12.0-16.0); Lymphocyte % 21.4 %; Mean Corpuscular HGB Conc 35 g/dL (31-36); Mean Corpuscular Hemoglobin 30 pg (27-31); Mean Corpuscular Volume 86 fL (80-97); Mean Platelet Volume 8.4 fL (7.4-10.4); Nucleated Red Blood Cells % 0.2; Red Blood Count 3.57 10^6 /uL (3.70-4.87); White Blood Count 0.8 10^3/uL (3.5-10.8)
[2021-02-14 06:24] LABS: Red Cell Distribution Width 17 % (10-15)
[2021-02-14 06:28] LABS: ABS Neutrophils 0.6 10^3/ul (1.5-7.7); Platelet Count 11 10^3/uL (150-450)
[2021-02-14] MEDS: Pantoprazole VIAL 40 MG VIAL IV SCH (08:00)
[2021-02-14] MEDS: ZOSYN 3.375 GM Q8H per EXTENDED INFUSION IV SCH ×3 (08:00→22:57)
[2021-02-14] MEDS: Dexamethasone 0.1 MG/ML ORALSYR SWISH SPIT SCH ×4 (08:01→20:28)
[2021-02-14] MEDS: Calcium Polycarbophil 625mg TB PO SCH (08:02)
[2021-02-14] MEDS: GLYCERIN (BULK BTL) 177 ML SCH ×4 (08:02→20:30)
[2021-02-14] MEDS: KCL 20 MEQ/100 ML IVPREMIX 20 MEQ/100 ML BAG IV SCH ×2 (16:42→16:48)
[2021-02-14 18:13] LABS: Platelet Count 22 10^3/uL (150-450)
[2021-02-15 08:15] LABS: BUN/Creatinine Ratio 15.8 (8-20); Calcium 7.2 mg/dL (8.6-10.3); EGFR African American 203.8 (>60); EGFR Non-African American 168.4 (>60); Hematocrit 29 % (35-47); Mean Corpuscular HGB Conc 35 g/dL (31-36); Mean Corpuscular Hemoglobin 30 pg (27-31); Mean Corpuscular Volume 86 fL (80-97); Potassium 2.9 mmol/L (3.5-5.0); Red Blood Count 3.32 10^6 /uL (3.70-4.87); Red Cell Distribution Width 16 % (10-15); White Blood Count 0.7 10^3/uL (3.5-10.8)
[2021-02-15] MEDS: Dexamethasone 0.1 MG/ML ORALSYR SWISH SPIT SCH ×5 (08:18→20:34)
[2021-02-15] MEDS: GLYCERIN (BULK BTL) 177 ML SCH ×4 (08:18→20:34)
[2021-02-15] MEDS: Pantoprazole VIAL 40 MG VIAL IV SCH (08:18)
[2021-02-15] MEDS: Calcium Polycarbophil 625mg TB PO SCH (08:18)
[2021-02-15] MEDS: ZOSYN 3.375 GM Q8H per EXTENDED INFUSION IV SCH (08:18)
[2021-02-15 08:36] LABS: ABS Lymphocytes 0.1 10^3/ul (1.0-4.8); ABS Neutrophils 0.5 10^3/ul (1.5-7.7); Eosinophil % 1.3 %; Lymphocyte % 22.2 %; Mean Platelet Volume 8.5 fL (7.4-10.4); Platelet Count 13 10^3/uL (150-450)
[2021-02-15 11:19] LABS: Magnesium 1.6 mg/dL (1.9-2.7)
[2021-02-16] MEDS: Dexamethasone 0.1 MG/ML ORALSYR SWISH SPIT SCH ×5 (06:27→21:30)
[2021-02-16] MEDS: Calcium Polycarbophil 625mg TB PO SCH (09:16)
[2021-02-16] MEDS: GLYCERIN (BULK BTL) 177 ML SCH ×4 (09:16→23:54)
[2021-02-17] MEDS: Calcium Polycarbophil 625mg TB PO SCH (07:57)
[2021-02-17] MEDS: GLYCERIN (BULK BTL) 177 ML SCH (07:57)
[2021-02-17] MEDS: Dexamethasone 0.1 MG/ML ORALSYR SWISH SPIT SCH ×2 (07:57→09:43)
[2021-02-17 08:45] VITALS: BP 126/56
== END 2021-02-17 11:34 | DRG 194 ==
LOC: ED 09:33 → MEDTELE 13:05
PROVIDERS: ADMIT Hospitalist; ATTEND Internal Medicine Hematology & Oncology